=== PATIENT | female | born 1980 | race Caucasian/White ===

== ENCOUNTER → 2017-05-30 | Outpatient (CLI) | payer OTHER ==
[~2017-05-30] MED LIST: Bactrim Ds Tab1 EACH PO; CEPH500 PO; CIPR500 PO; CYCL10 PO; Cleocin HCl300 MG PO; DIPHTC; ERYT333ERA PO; HYDACE5 PO; HYDACE5325 PO; Keflex500 MG PO; METH10 PO; METR500 PO; MUPI2TO TOP; NAPR500 PO; Norco 5-325 Ta1 EACH PO; PRED20 PO; PYRI60 PO; Percocet 5-3251 EACH PO; RXHYDACE PO; SULTRIDS PO; TRAM50 PO; Vistaril25 MG PO
== END ==
LOC: LAB SHORT 08:45
DX: N39.0 Urinary tract infection, site not specified (principal)
CPT/HCPCS: 87077; 87086; 87186

== ENCOUNTER 2017-06-13 15:08 | Emergency (ER) | payer OTHER ==
[~2017-06-13] VITALS: Ht 170.2 cm; Wt 90.7 kg
[~2017-06-13 15:08] MED LIST changes: -Keflex500 MG PO; -METH10 PO; -PYRI60 PO
[2017-06-13] MEDS ORDERED: METH10 PO (16:41)
[2017-06-13] MEDS ORDERED: PYRI60 PO (16:47)
[2018-02-13] MEDS ORDERED: Keflex500 MG PO (21:37)
[2018-02-13] MEDS ORDERED: Bactrim Ds Tab1 EACH PO (21:37)
== END 2017-06-13 16:50 | disposition home or self-care (01) ==
LOC: ER 15:08
DX: S63.602A Unspecified sprain of left thumb, initial encounter (principal); Z98.51 Tubal ligation status; F17.210 Nicotine dependence, cigarettes, uncomplicated; Z88.0 Allergy status to penicillin; Z79.899 Other long term (current) drug therapy; W22.8XXA Striking against or struck by other objects, initial encounter
CPT/HCPCS: 73140; 99283

== ENCOUNTER 2018-05-14 19:37 | Emergency (ER) | payer OTHER ==
[~2018-05-14] VITALS: Ht 170.2 cm; Wt 90.7 kg
[~2018-05-14 19:37] MED LIST changes: +Keflex500 MG PO; +METH10 PO; +PYRI60 PO
[2018-05-14 20:40] LABS: BASOPHILS ABSOLUTE AUTO 0.05 K/mm3 (0.00-0.23); BASOPHILS PERCENT AUTO 1 % (0-2); EOSINOPHILS ABSOLUTE AUTO 0.24 K/mm3 (0.00-0.68); EOSINOPHILS PERCENT AUTO 3 % (0-6); Hematocrit 38.3 % (33.0-51.0); Hemoglobin 12.4 g/dL (11.5-16.0); IMMATURE GRAN ABSOLUTE AUTO 0.05 K/mm3 (0.00-0.10); IMMATURE GRAN PERCENT AUTO 1 % (0-1); LYMPHOCYTES ABSOLUTE AUTO 2.72 K/mm3 (0.84-5.20); LYMPHOCYTES PERCENT AUTO 31 % (21-46); MONOCYTES ABSOLUTE AUTO 0.67 K/mm3 (0.16-1.47); MONOCYTES PERCENT AUTO 8 % (4-13); Mean Corpuscular HGB 31.2 pg (26.0-34.0); Mean Corpuscular HGB Conc 32.4 g/dL (31.5-36.5); Mean Corpuscular Volume 96 fL (80-100); Mean Platelet Volume 9.6 fL (9.1-12.4); NEUTROPHILS ABSOLUTE AUTO 5.14 K/mm3 (1.96-9.15); NEUTROPHILS PERCENT AUTO 58 % (41-73); Platelet Count 460 K/mm3 (150-400); RDW Coefficient Variation 12.4 % (11.7-14.2); RDW Standard Deviation 44.2 fL (35.1-46.3); Red Blood Cell Count 3.98 M/mm3 (3.80-5.20); White Blood Cell Count 8.87 K/mm3 (4.00-11.30)
[2018-05-14 21:07] LABS: Alanine Aminotransfer (ALT/SGP 43 U/L (12-78); Albumin, Blood 3.1 g/dL (3.4-5.0); Albumin/Globulin Ratio 0.6 (0.8-1.8); Alk Phos 104 U/L (50-136); Anion Gap 7 mmol/L (6-16); Aspartate Aminotrans (AST/SGOT 38 U/L (12-37); Bilirubin, Total 0.2 mg/dL (0.1-1.0); Blood Urea Nitrogen 13 mg/dL (8-24); Bun/Creatinine Ratio 23.1 (12.0-20.0); CO2, Blood 23 mmol/L (21-32); Calcium, Blood 8.5 mg/dL (8.5-10.1); Chloride, Blood 105 mmol/L (98-108); Creatinine, Blood 0.56 mg/dL (0.40-1.00); Globulin, Blood 5.4 g/dL (2.2-4.0); Glomerular Filtration Rate >60 (60-); Glucose, Blood 90 mg/dL (70-99); Potassium, Blood 3.9 mmol/L (3.5-5.5); Sodium, Blood 135 mmol/L (136-145); Total Protein, Blood 8.5 g/dL (6.4-8.2)
[2018-05-14] MEDS ORDERED: CEPH500 PO (23:30)
[2018-05-14] MEDS ORDERED: Bactrim Ds Tab1 EACH PO (23:30)
== END 2018-05-15 01:02 | disposition home or self-care (01) ==
LOC: ER 19:37
PROVIDERS: Physician Assistant
DX: L02.416 Cutaneous abscess of left lower limb (principal); Z88.0 Allergy status to penicillin; F17.210 Nicotine dependence, cigarettes, uncomplicated
CPT/HCPCS: 36415; 73701; 80053; 83605; 85025; 87040; 93005; 93010; 96365; 96366; 99284-25; J3370; J7050; Q9967

== ENCOUNTER → 2018-08-03 | Outpatient (CLI) | payer OTHER | END | disposition home or self-care (01) | LOC: LAB 18:27 → LAB SHORT 18:27 | DX: L02.416 Cutaneous abscess of left lower limb (principal) | CPT/HCPCS: 87070; 87075; 87077; 87147; 87186; 87205 ==

== ENCOUNTER 2018-09-16 19:43 | Emergency (ER) | payer OTHER ==
[~2018-09-16] VITALS: Ht 170.2 cm; Wt 90.7 kg
[2018-09-16] MEDS ORDERED: CYCL10 PO (21:05)
[2018-09-16] MEDS ORDERED: Naprosyn500 MG PO (21:05)
== END 2018-09-16 21:30 | disposition home or self-care (01) ==
LOC: ER 19:43
DX: S46.211A Strain of muscle, fascia and tendon of other parts of biceps, right arm, initial encounter (principal); F11.10 Opioid abuse, uncomplicated; F17.210 Nicotine dependence, cigarettes, uncomplicated; Z88.0 Allergy status to penicillin; X58.XXXA Exposure to other specified factors, initial encounter
CPT/HCPCS: 73030; 99283-25

== ENCOUNTER 2018-10-14 23:26 | Emergency (ER) | payer OTHER ==
[~2018-10-14] VITALS: Ht 170.2 cm; Wt 90.7 kg
[~2018-10-14 23:26] MED LIST changes: +Naprosyn500 MG PO
== END 2018-10-15 03:22 | disposition left against medical advice (07) ==
LOC: ER 23:26
DX: Z53.21 Procedure and treatment not carried out due to patient leaving prior to being seen by health care provider (principal)

== ENCOUNTER 2018-10-15 14:36 | Inpatient (IN) | payer OTHER ==
[~2018-10-15] VITALS: Ht 170.2 cm; Wt 88.9 kg
[2018-10-15 19:13] LABS: Source, Urine Clean Catch
[2018-10-15 19:20] LABS: Bilirubin, Urine Neg (Neg); Blood, Urine Neg (Neg); Glucose Qualitative, Urine Neg (Neg); Ketones, Urine 1+ (Neg); Leukocyte Esterase, Urine 1+ (Neg); Nitrite, Urine Neg (Neg); Protein, Urine 2+ (Neg); Specific Gravity, Urine 1.025 (1.003-1.022); Urobilinogen, Urine 1+ (Normal)
[2018-10-15 19:37] LABS: Appearance, Urine Hazy (Clear); Color, Urine Yellow (P-Yellow)
[2018-10-15 19:41] LABS: White Blood Cells, Urine 25-50 /hpf (0-5)
[2018-10-15 19:42] LABS: Amorphous Light (0-Heavy); Bacteria Many /hpf; Squamous Epithelial Cells Many /hpf (Few)
[2018-10-15 19:43] LABS: Mucus Mod (0-Heavy)
[2018-10-15 20:16] LABS: BASOPHILS ABSOLUTE AUTO 0.05 K/mm3 (0.00-0.23); BASOPHILS PERCENT AUTO 1 % (0-2); EOSINOPHILS PERCENT AUTO 3 % (0-6); Hematocrit 37.8 % (33.0-51.0); Hemoglobin 12.3 g/dL (11.5-16.0); IMMATURE GRAN ABSOLUTE AUTO 0.05 K/mm3 (0.00-0.10); IMMATURE GRAN PERCENT AUTO 1 % (0-1); LYMPHOCYTES ABSOLUTE AUTO 2.89 K/mm3 (0.84-5.20); LYMPHOCYTES PERCENT AUTO 27 % (21-46); MONOCYTES ABSOLUTE AUTO 0.78 K/mm3 (0.16-1.47); MONOCYTES PERCENT AUTO 7 % (4-13); Mean Corpuscular HGB 29.6 pg (26.0-34.0); Mean Corpuscular HGB Conc 32.5 g/dL (31.5-36.5); Mean Corpuscular Volume 91 fL (80-100); Mean Platelet Volume 9.9 fL (9.1-12.4); NEUTROPHILS ABSOLUTE AUTO 6.65 K/mm3 (1.96-9.15); NEUTROPHILS PERCENT AUTO 62 % (41-73); Platelet Count 502 K/mm3 (150-400); RDW Coefficient Variation 13.2 % (11.7-14.2); RDW Standard Deviation 44.1 fL (35.1-46.3); Red Blood Cell Count 4.15 M/mm3 (3.80-5.20); White Blood Cell Count 10.72 K/mm3 (4.00-11.30)
[2018-10-15 20:26] LABS: Anion Gap 8 mmol/L (6-16); Blood Urea Nitrogen 11 mg/dL (8-24); Bun/Creatinine Ratio 17.1 (12.0-20.0); CO2, Blood 29 mmol/L (21-32); Calcium, Blood 9.5 mg/dL (8.5-10.1); Chloride, Blood 100 mmol/L (98-108); Creatinine, Blood 0.65 mg/dL (0.40-1.00); Glomerular Filtration Rate >60 (60-); Glucose, Blood 87 mg/dL (70-99); Potassium, Blood 3.2 mmol/L (3.5-5.5); Sodium, Blood 137 mmol/L (136-145)
[2018-10-16 05:08] LABS: Hemoglobin 11.1 g/dL (11.5-16.0); Mean Corpuscular HGB 29.5 pg (26.0-34.0); Mean Corpuscular HGB Conc 32.6 g/dL (31.5-36.5); Mean Corpuscular Volume 90 fL (80-100); Mean Platelet Volume 9.7 fL (9.1-12.4); Platelet Count 472 K/mm3 (150-400); RDW Coefficient Variation 13.1 % (11.7-14.2); RDW Standard Deviation 43.7 fL (35.1-46.3); Red Blood Cell Count 3.76 M/mm3 (3.80-5.20); White Blood Cell Count 9.97 K/mm3 (4.00-11.30)
[2018-10-16 05:32] LABS: Alanine Aminotransfer (ALT/SGP 28 U/L (12-78); Albumin, Blood 2.5 g/dL (3.4-5.0); Albumin/Globulin Ratio 0.5 (0.8-1.8); Alk Phos 105 U/L (50-136); Anion Gap 5 mmol/L (6-16); Aspartate Aminotrans (AST/SGOT 21 U/L (12-37); Bilirubin, Total 0.6 mg/dL (0.1-1.0); Blood Urea Nitrogen 10 mg/dL (8-24); Bun/Creatinine Ratio 17.9 (12.0-20.0); CO2, Blood 29 mmol/L (21-32); Calcium, Blood 8.5 mg/dL (8.5-10.1); Chloride, Blood 107 mmol/L (98-108); Creatinine, Blood 0.56 mg/dL (0.40-1.00); Globulin, Blood 4.7 g/dL (2.2-4.0); Glomerular Filtration Rate >60 (60-); Glucose, Blood 96 mg/dL (70-99); Potassium, Blood 4.1 mmol/L (3.5-5.5); Sodium, Blood 141 mmol/L (136-145); Total Protein, Blood 7.2 g/dL (6.4-8.2)
--- NOTE | 2018-10-16 05:47 | NUR ---
SHIFT SUMMARY PT NEW ADMIT TO FLOOR. AOX4. VSS. DENIES N/V/D OR DYSPNEA. REPORTS 10/10 BURNING PAIN IN L HIP & RLE WHERE ABCESS ARE LOCATED. L HIP HAS BROWNISH RED DRAINAGE W/REDNESS & SWELLING ON SURROUNDING SKIN, SOME BLACK SKIN OVER WOUND, SEE PICS. RLE ON BAUTISTA HAS SWELLING & REDNESS W/RAISED BUMP, NO OPEN AREA OR DRAINAGE NOTED. ORTHO CONSULT CALLED IN TO [facility] PER ORDERS. MEDICATED 1X W/TYLENOL & 1X W/FENTANYL PER ORDERS, PT REPORTS @HOME SHE WOULD USE HEROIN & IBPROPHEN TO HELP W/PAIN. POWERGLIDE PLACED IN BERNICE BY LOUIS Hager RN. NPO PER ORDERS. INDEPENDENT W/TRANSFERS, STEADY ON FEET, CONTINENT OF URINE. CALL LIGHT IN REACH.
--- NOTE | 2018-10-16 11:13 | NUR ---
AM NOTE. ASSUMED CARE OF PT APROX 0700, PT IS A&Ox4 AND IND IN THE ROOM. PT IS CURRENT IV HEROIN USER AND HER PAIN IS NOT WELL CONTROLLED PER THE PT. SHE IS IN A 10/10 PAIN ALL OVER, PT STATES HER SKIN HURTS WELL THE ABCESSES ON HER LEFT HIP AND RIGHT BAUTISTA. PT WAS EDUCATED ON PAIN CONTROL AND EDUCATED ABOUT MANAGING PAIN CONTROL EXPETCATIONS THAT WE WILL NOT BE ABLE TO GET RID OF ALL HER PAIN. PT STATED HER UNDERSTANDING. PT'S HRR, IN THE 80'S, PT'S BP 122/85. THERE IS NONPITTING EDEMA NOTED TO THE PT'S LEFT HIP AROUND THE WOUND AND TO HER RIGHT LOWER LEG AROUND THE NEWLY OPENED ABCESS. L/S CLEAR BUT DIM T/O. BT PRESENT AND HYPERACTIVE, ABD IS SOFT AND NONTENDER TO PALP. PT IS VERY ANXIOUS AND UPSET ABOUT POOR PAIN CONTROL AND NOT BEING ABLE TO SMOKE. PT WAS EDUCATED ON THE NO SMOKING POLICY OF THIS UNIT, PT STATED HER UNDERSTANDING AND BUT STILL WANTED TO GO OUTSIDE. DRESSING CHANGE WAS DONE AND PT LEFT FOR OUTSIDE. PT IS TO TRANSFER TO THE SURGICAL FLOOR WHEN SHE RETURNS FROM SMOKING.
--- NOTE | 2018-10-16 12:00 | NUR ---
PT TRANSFERRED FROM PCU, A&OX4, INDEPENDENT IN ROOM, REP PAIN 11/11 - WILL TX PER EMAR. CALLED SURGICAL CONSULT TO CONFIRM IT HAD BEEN RECEIVED - OFFICE REPORTED SURGEON AWARE.
--- NOTE | 2018-10-16 14:36 | NUR ---
AMA DISCHARGE PT STATES SHE IS "NOT GOING TO WAIT ANYMORE, I AM GOING TO MAKE MYSELF WELL BECAUSE I AM AN ADDICT AND I AM SICK AND NEED HEROIN" PT EDUCATED ON THE RISKS OF LEAVING AND BENNEFITS OF STAYING-PT STATES THAT "IT IS A RISK SHE IS WILLING TO TAKE". POWER GLIDE REMOVED. DR BARON AND NURSING FINISH REPAIRER NOTIFIED.
--- NOTE | 2018-10-16 17:41 | NUR ---
positive blood cultures at aprox 1730 lab called with gram + bacilli blood culture. Pt left AMA prior to lab results called. Message left for Dr Daniel to call [phone] for results.
== END 2018-10-16 14:45 | disposition left against medical advice (07) | DRG 602 ==
LOC: ER 14:36 → PCU 21:00 → SURS 10-16 11:41
PROVIDERS: Emergency Medicine; ADMIT Internal Medicine
DX: L02.416 Cutaneous abscess of left lower limb (principal); L89.213 Pressure ulcer of right hip, stage 3; L02.01 Cutaneous abscess of face; B19.20 Unspecified viral hepatitis C without hepatic coma; F17.210 Nicotine dependence, cigarettes, uncomplicated; L02.415 Cutaneous abscess of right lower limb; F11.10 Opioid abuse, uncomplicated
CPT/HCPCS: 36415; 72193; 80048; 80053; 81001; 81025; 83605; 85025; 85027; 87040; 87086; 96365-59; 96375; 99285-25; A9270; C1751; J1650; J2185; J3010; J3370; J3480; J7050; Q9967

== ENCOUNTER 2018-11-04 22:44 | Inpatient (IN) | payer OTHER ==
[~2018-11-04] VITALS: Ht 170.2 cm; Wt 88.2 kg
[2018-11-04 23:18] LABS: Source, Urine Clean Catch
[2018-11-04 23:21] LABS: Blood, Urine 2+ (Neg); Glucose Qualitative, Urine Neg (Neg); Ketones, Urine 1+ (Neg); Leukocyte Esterase, Urine 1+ (Neg); Nitrite, Urine Neg (Neg); Protein, Urine 2+ (Neg); Specific Gravity, Urine 1.025 (1.003-1.022); Urobilinogen, Urine 3+ (Normal)
[2018-11-04 23:23] LABS: Bilirubin, Urine 1+ (Neg)
[2018-11-04 23:28] LABS: Appearance, Urine Hazy (Clear); Bacteria Many /hpf; Color, Urine Amber (P-Yellow); Mucus Heavy (0-Heavy); Red Blood Cells, Urine 0-2 /hpf (0-2); Squamous Epithelial Cells Few /hpf (Few)
[2018-11-05 01:22] LABS: BASOPHILS ABSOLUTE AUTO 0.03 K/mm3 (0.00-0.23); BASOPHILS PERCENT AUTO 0 % (0-2); EOSINOPHILS PERCENT AUTO 2 % (0-6); Hematocrit 32.6 % (33.0-51.0); Hemoglobin 10.6 g/dL (11.5-16.0); IMMATURE GRAN ABSOLUTE AUTO 0.05 K/mm3 (0.00-0.10); IMMATURE GRAN PERCENT AUTO 0 % (0-1); LYMPHOCYTES ABSOLUTE AUTO 1.73 K/mm3 (0.84-5.20); LYMPHOCYTES PERCENT AUTO 15 % (21-46); MONOCYTES ABSOLUTE AUTO 0.89 K/mm3 (0.16-1.47); MONOCYTES PERCENT AUTO 8 % (4-13); Mean Corpuscular HGB 29.2 pg (26.0-34.0); Mean Corpuscular HGB Conc 32.5 g/dL (31.5-36.5); Mean Corpuscular Volume 90 fL (80-100); NEUTROPHILS ABSOLUTE AUTO 8.38 K/mm3 (1.96-9.15); NEUTROPHILS PERCENT AUTO 74 % (41-73); Platelet Count 320 K/mm3 (150-400); RDW Coefficient Variation 14.3 % (11.7-14.2); RDW Standard Deviation 46.7 fL (35.1-46.3); Red Blood Cell Count 3.63 M/mm3 (3.80-5.20); White Blood Cell Count 11.28 K/mm3 (4.00-11.30)
[2018-11-05 01:43] LABS: Alanine Aminotransfer (ALT/SGP 30 U/L (12-78); Albumin, Blood 2.4 g/dL (3.4-5.0); Albumin/Globulin Ratio 0.5 (0.8-1.8); Alk Phos 94 U/L (50-136); Anion Gap 6 mmol/L (6-16); Aspartate Aminotrans (AST/SGOT 29 U/L (12-37); Bilirubin, Total 0.3 mg/dL (0.1-1.0); Blood Urea Nitrogen 11 mg/dL (8-24); Bun/Creatinine Ratio 19.8 (12.0-20.0); CO2, Blood 29 mmol/L (21-32); Calcium, Blood 8.6 mg/dL (8.5-10.1); Chloride, Blood 98 mmol/L (98-108); Creatinine, Blood 0.56 mg/dL (0.40-1.00); Globulin, Blood 4.8 g/dL (2.2-4.0); Glomerular Filtration Rate >60 (60-); Glucose, Blood 105 mg/dL (70-99); Potassium, Blood 3.3 mmol/L (3.5-5.5); Sodium, Blood 133 mmol/L (136-145); Total Protein, Blood 7.2 g/dL (6.4-8.2)
[2018-11-05 06:28] LABS: BASOPHILS ABSOLUTE AUTO 0.03 K/mm3 (0.00-0.23); BASOPHILS PERCENT AUTO 0 % (0-2); EOSINOPHILS ABSOLUTE AUTO 0.25 K/mm3 (0.00-0.68); EOSINOPHILS PERCENT AUTO 2 % (0-6); Hematocrit 31.8 % (33.0-51.0); Hemoglobin 10.4 g/dL (11.5-16.0); IMMATURE GRAN ABSOLUTE AUTO 0.03 K/mm3 (0.00-0.10); IMMATURE GRAN PERCENT AUTO 0 % (0-1); LYMPHOCYTES ABSOLUTE AUTO 1.86 K/mm3 (0.84-5.20); LYMPHOCYTES PERCENT AUTO 17 % (21-46); MONOCYTES ABSOLUTE AUTO 0.92 K/mm3 (0.16-1.47); MONOCYTES PERCENT AUTO 8 % (4-13); Mean Corpuscular HGB 29.7 pg (26.0-34.0); Mean Corpuscular HGB Conc 32.7 g/dL (31.5-36.5); Mean Corpuscular Volume 91 fL (80-100); NEUTROPHILS ABSOLUTE AUTO 8.05 K/mm3 (1.96-9.15); NEUTROPHILS PERCENT AUTO 72 % (41-73); Platelet Count 332 K/mm3 (150-400); RDW Coefficient Variation 14.4 % (11.7-14.2); White Blood Cell Count 11.14 K/mm3 (4.00-11.30)
[2018-11-05 06:44] LABS: Anion Gap 4 mmol/L (6-16); Blood Urea Nitrogen 8 mg/dL (8-24); Bun/Creatinine Ratio 15.7 (12.0-20.0); CO2, Blood 29 mmol/L (21-32); Calcium, Blood 8.2 mg/dL (8.5-10.1); Chloride, Blood 101 mmol/L (98-108); Creatinine, Blood 0.51 mg/dL (0.40-1.00); Glomerular Filtration Rate >60 (60-); Glucose, Blood 90 mg/dL (70-99); Potassium, Blood 3.6 mmol/L (3.5-5.5); Sodium, Blood 134 mmol/L (136-145)
--- NOTE | 2018-11-05 19:04 | NUR ---
SHIFT SUMMARY- PT NEW ADMIT THIS AFTERNOON. PT REPORTS RLE ONLY PAINFUL UPON TOUCH. DENIES SOB. RESP E/U ON RA. DENIES N/V. PT REPORTS SHE LAST USED IV HEROIN YESTERDAY. NO S/S OF WITHDRAWAL THIS SHIFT. CELLULITIS ON RLE IS MARKED. INDEPENDENT IN THE ROOM. FAMILY AT BEDSIDE. NO OTHER SIGNIFICANT CHANGES THIS SHIFT.
--- NOTE | 2018-11-06 06:25 | NUR ---
SHIFT SUMMARY PT INDEPENDENT A/O. NO C/O PAIN JUST VERY SLEEPY LETHARGIC WHOLE SHIFT. RLE WOUND PHILLY. SHE SLEPT THROUGH NIGHT. CALL LIGHT IN REACH.
--- NOTE | 2018-11-06 09:00 | NUR ---
PTPLEASANT COOP A/O. DENIES PAIN. H/R REG, NO MURMER NOTED. NO TELE. LUNGS CLEAR, RESP EASY, UNLABORED. ON R.A BT X4 LAST BM THIS AM. FIRM. STATES WILL TAKE COLACE AND MIRALAX. VOIDS PER BATHROOM. INDEPENDANT. WALKS TO SMOKE ALSO. RT LEG RED, ULCER NOTED. PHILLY. NO OTHER CONCERNS AT THIS TIME. BED IN LOW POSITION, CALL LITE IN REAC, CALLS APPROP
[2018-11-06 14:46] LABS: Vancomycin, Trough 7.3 ug/mL (5.0-10.0)
--- NOTE | 2018-11-06 18:34 | NUR ---
PT PLEASANT TODAY. HAS BEEN OUT TO SMOKE SEVERAL TIMES TODAY. INDEPENDANT WALKING. BEEN RESPECTFUL WITH BEING HERE WHEN REQUESTED. NO OTHER CONCERNS AT THIS TIME. BED IN LOW POSITION, ACLL LITE IN REACH, CALLS APPROP
--- NOTE | 2018-11-07 06:07 | NUR ---
SHIFT SUMMARY PT A/O INDEPENDENT WENT OUTSIDE X2 C FRIEND. R LEG COLOR LOOKS LESS RED, MORE PINK COLOR. PT THINKS IT IS GETTING BETTER, NO C/O PAIN. SHE WAS ABLE TO SLEEP T/O NIGHT.
[2018-11-07] MEDS ORDERED: Florastor250 MG PO (14:57)
[2018-11-07] MEDS ORDERED: CLIN300 PO (15:03)
--- NOTE | 2018-11-07 15:32 | NUR ---
PT DISCHARGED THE PT VERBALIZED UNDERSTANDING OF THE DC INSTRUCTIONS, THE PTS PRESCRIPTIONS WERE FAXED TO [facility], THE PT DECLINED WHEELCHAIR AND AMBULATED OUT ACCOMPANIED BY A FREIND STEADY ON HER FEET APPEARED TO BE BREATHING EASILY ON RA, A WOUND CARE CONSULTATION ORDER WAS SENT
== END 2018-11-07 15:27 | disposition home or self-care (01) | DRG 603 ==
LOC: ER 22:44 → ERHOLD 22:45 → MEDS 11-05 14:42 → ENPENDDIS 11-07 14:27 → MEDS 11-07 15:27
PROVIDERS: Emergency Medicine; ADMIT Hospitalist
DX: L03.115 Cellulitis of right lower limb (principal); E87.1 Hypo-osmolality and hyponatremia; F11.10 Opioid abuse, uncomplicated; B18.2 Chronic viral hepatitis C; E87.6 Hypokalemia; F17.210 Nicotine dependence, cigarettes, uncomplicated
CPT/HCPCS: 71045; 73701; 80048; 80053; 80202; 81001; 83605; 85025; 87040; 87086; 93971; 96365-59; 96366; 96367-59; 96372; 96372-59; 96375-59; 96376; 99285-25; A9270; G0378; J0696; J1650; J3370; J7030; J7050; Q9967

== ENCOUNTER 2019-04-21 18:51 | Emergency (ER) | payer OTHER ==
[~2019-04-21] VITALS: Ht 170.2 cm; Wt 90.7 kg
[~2019-04-21 18:51] MED LIST changes: +CLIN300 PO; +Florastor250 MG PO
[2019-04-21 20:19] LABS: BASOPHILS ABSOLUTE AUTO 0.05 K/mm3 (0.00-0.23); BASOPHILS PERCENT AUTO 1 % (0-2); EOSINOPHILS PERCENT AUTO 4 % (0-6); Hematocrit 38.8 % (33.0-51.0); Hemoglobin 12.6 g/dL (11.5-16.0); IMMATURE GRAN ABSOLUTE AUTO 0.02 K/mm3 (0.00-0.10); IMMATURE GRAN PERCENT AUTO 0 % (0-1); LYMPHOCYTES PERCENT AUTO 32 % (21-46); MONOCYTES ABSOLUTE AUTO 0.65 K/mm3 (0.16-1.47); MONOCYTES PERCENT AUTO 9 % (4-13); Mean Corpuscular HGB 29.2 pg (26.0-34.0); Mean Corpuscular HGB Conc 32.5 g/dL (31.5-36.5); Mean Corpuscular Volume 90 fL (80-100); Mean Platelet Volume 9.8 fL (9.1-12.4); NEUTROPHILS ABSOLUTE AUTO 4.03 K/mm3 (1.96-9.15); NEUTROPHILS PERCENT AUTO 54 % (41-73); Platelet Count 363 K/mm3 (150-400); RDW Coefficient Variation 14.2 % (11.7-14.2); RDW Standard Deviation 47.2 fL (35.1-46.3); Red Blood Cell Count 4.32 M/mm3 (3.80-5.20); White Blood Cell Count 7.45 K/mm3 (4.00-11.30)
[2019-04-21 20:37] LABS: Alanine Aminotransfer (ALT/SGP 39 U/L (12-78); Albumin, Blood 3.1 g/dL (3.4-5.0); Albumin/Globulin Ratio 0.7 (0.8-1.8); Alk Phos 107 U/L (50-136); Anion Gap 4 mmol/L (6-16); Aspartate Aminotrans (AST/SGOT 34 U/L (12-37); Bilirubin, Total 0.5 mg/dL (0.1-1.0); Blood Urea Nitrogen 12 mg/dL (8-24); Bun/Creatinine Ratio 28.5 (12.0-20.0); CO2, Blood 28 mmol/L (21-32); Calcium, Blood 9.2 mg/dL (8.5-10.1); Chloride, Blood 104 mmol/L (98-108); Creatinine, Blood 0.42 mg/dL (0.40-1.00); Globulin, Blood 4.7 g/dL (2.2-4.0); Glomerular Filtration Rate >60 (60-); Glucose, Blood 112 mg/dL (70-99); Potassium, Blood 3.8 mmol/L (3.5-5.5); Sodium, Blood 136 mmol/L (136-145); Total Protein, Blood 7.8 g/dL (6.4-8.2)
[2019-04-21 23:26] LABS: Body Fluid Crystals NEG (NEGATIVE)
[2019-04-22] MEDS ORDERED: IBU600 MG PO (00:38)
[2019-04-22] MEDS ORDERED: LIDO700A20 TOP (00:38)
== END 2019-04-22 00:55 | disposition home or self-care (01) ==
LOC: ER 18:51
PROVIDERS: Emergency Medicine
DX: M25.512 Pain in left shoulder (principal); F19.10 Other psychoactive substance abuse, uncomplicated; Z86.19 Personal history of other infectious and parasitic diseases; Z88.0 Allergy status to penicillin; F17.210 Nicotine dependence, cigarettes, uncomplicated
CPT/HCPCS: 20610; 36415; 73201; 80053; 84145; 85025; 85651; 86140; 87070; 87075; 87205; 89060; 93005; 93010; 96374; 99284-25; A9270; J1885; Q9967

== ENCOUNTER 2019-05-17 11:26 | Emergency (ER) | payer OTHER ==
[~2019-05-17] VITALS: Ht 170.2 cm; Wt 90.7 kg
[~2019-05-17 11:26] MED LIST changes: +IBU600 MG PO; +LIDO700A20 TOP
[2019-05-17] MEDS ORDERED: CEPH500 PO (12:59)
[2019-05-17] MEDS ORDERED: Bactrim Ds Tab1 EACH PO (12:59)
== END 2019-05-17 13:04 | disposition home or self-care (01) ==
LOC: ER 11:26
DX: L02.416 Cutaneous abscess of left lower limb (principal); L03.116 Cellulitis of left lower limb; F17.210 Nicotine dependence, cigarettes, uncomplicated; Z88.0 Allergy status to penicillin; Z86.19 Personal history of other infectious and parasitic diseases
CPT/HCPCS: 10060; 87070; 87075; 87077; 87147; 87186; 87205; 99283-25; A9270-GY

== ENCOUNTER 2020-08-14 11:28 | Inpatient (IN) | payer OTHER ==
[~2020-08-14] VITALS: Ht 170.2 cm; Wt 105.5 kg
[2020-08-14 12:09] LABS: BASOPHILS ABSOLUTE AUTO 0.07 K/mm3 (0.00-0.23); BASOPHILS PERCENT AUTO 1 % (0-2); EOSINOPHILS ABSOLUTE AUTO 0.47 K/mm3 (0.00-0.68); EOSINOPHILS PERCENT AUTO 4 % (0-6); Hematocrit 31.8 % (33.0-51.0); Hemoglobin 10.4 g/dL (11.5-16.0); IMMATURE GRAN ABSOLUTE AUTO 0.05 K/mm3 (0.00-0.10); IMMATURE GRAN PERCENT AUTO 0 % (0-1); LYMPHOCYTES ABSOLUTE AUTO 2.79 K/mm3 (0.84-5.20); LYMPHOCYTES PERCENT AUTO 23 % (21-46); MONOCYTES ABSOLUTE AUTO 0.75 K/mm3 (0.16-1.47); MONOCYTES PERCENT AUTO 6 % (4-13); Mean Corpuscular HGB 28.4 pg (26.0-34.0); Mean Corpuscular HGB Conc 32.7 g/dL (31.5-36.5); Mean Corpuscular Volume 87 fL (80-100); Mean Platelet Volume 9.9 fL (9.1-12.4); NEUTROPHILS ABSOLUTE AUTO 7.93 K/mm3 (1.96-9.15); NEUTROPHILS PERCENT AUTO 66 % (41-73); Platelet Count 478 K/mm3 (150-400); RDW Coefficient Variation 14.1 % (11.7-14.2); RDW Standard Deviation 45.3 fL (35.1-46.3); Red Blood Cell Count 3.66 M/mm3 (3.80-5.20); White Blood Cell Count 12.06 K/mm3 (4.00-11.30)
[2020-08-14 12:27] LABS: Alanine Aminotransfer (ALT/SGP 34 U/L (12-78); Albumin, Blood 2.7 g/dL (3.4-5.0); Albumin/Globulin Ratio 0.5 (0.8-1.8); Alk Phos 149 U/L (50-136); Anion Gap 5 mmol/L (6-16); Aspartate Aminotrans (AST/SGOT 36 U/L (12-37); Bilirubin, Total 0.4 mg/dL (0.1-1.0); Blood Urea Nitrogen 18 mg/dL (8-24); Bun/Creatinine Ratio 36.4 (12.0-20.0); CO2, Blood 29 mmol/L (21-32); Calcium, Blood 8.8 mg/dL (8.5-10.1); Chloride, Blood 102 mmol/L (98-108); Globulin, Blood 5.6 g/dL (2.2-4.0); Glomerular Filtration Rate >60 (60-); Glucose, Blood 111 mg/dL (70-99); Potassium, Blood 4.1 mmol/L (3.5-5.5); Sodium, Blood 136 mmol/L (136-145); Total Protein, Blood 8.3 g/dL (6.4-8.2)
--- NOTE | 2020-08-14 17:26 | NUR ---
ARRIVES AROUND 1600. IV INFILTRATED AND D'C. GAEL RIGGINS ATTEMPTING TO GET IV W/ULTRASOUND. PATIENT HAS LARGE BUMPS TO ALL EXTREMITIES. PICS TAKEN OF BILATERAL UPPER ARMS WHERE PATIENT INJECTS EITHER HEROIN OR METH. SWELLING TO THOSE AREAS WITH SLIGHT BRUISING. RT LOWER LEG WITH REDNESS MARKED. NO OPEN DRANAGE TO THIS AREA, BUT WITH LUMPS UNDER THE SKIN. PICS OF OLD (ONE MONTH AGO) SITES (X2) TAKEN OF LEFT LATERAL UPPER THIGH. DRY, NO DRAINAGE.PIC OF RT LATERAL UPPER THIGH TAKEN. 4 WOUNDS WITH ALL DRAINING. CLENED WITH SKINTEGRITY AND 4 MEPILES APPLIED. REDNESS MARKED. PATIENT ALERT. ORIENTED. DENIES ANY WEAKNESS. STS HAS BEEN DOING DRUGS FOR 16 YEARS. AWARE NEEDS URINE SAMPLE. HAT PLACED IN BATHROOM. PER GAEL RIGGINS UNABLE TO IV AT THIS TIME. INDEPENDENT IN ROOM. PER SALES AND MARKETING ASSOCIATE SR AT 88. WCTM
--- NOTE | 2020-08-14 19:37 | NUR ---
AMA PT REQUESTED TO LEAVE AMA. RISKS OF LEAVING, BENEFITS OF STAYING EXPLAINED TO PT. SHE SIGNED AMA PAPERWORK, DRESSED HERSELF, GATHERED HER THINGS AND LEFT THE FLOOR. CHARGE AND FURNACE CHARGING MACHINE OPERATOR VAHE INFORMED.
== END 2020-08-14 19:28 | disposition left against medical advice (07) | DRG 872 ==
LOC: ER 11:28 → MEDS 14:14
PROVIDERS: Emergency Medicine; ADMIT Internal Medicine
DX: A41.9 Sepsis, unspecified organism (principal); L03.115 Cellulitis of right lower limb; F11.10 Opioid abuse, uncomplicated; F17.210 Nicotine dependence, cigarettes, uncomplicated; B18.2 Chronic viral hepatitis C; S71.101A Unspecified open wound, right thigh, initial encounter; Z53.29 Procedure and treatment not carried out because of patient's decision for other reasons; Z88.0 Allergy status to penicillin
CPT/HCPCS: 36415; 73701; 80053; 83605; 85025; 87070; 87075; 87077; 87147; 87186; 87205; 96365-59; 96375-59; 99284-25; J1170; J1650; J2405; J3370; J7030; Q9967

== ENCOUNTER 2022-06-01 18:14 | Inpatient (IN) | payer OTHER ==
[~2022-06-01] VITALS: Ht 170.2 cm; Wt 123.0 kg
[2022-06-01 19:28] LABS: Hematocrit 38.8 % (33.0-51.0); Hemoglobin 12.9 g/dL (11.5-16.0); Mean Corpuscular HGB 29.4 pg (26.0-34.0); Mean Corpuscular HGB Conc 33.2 g/dL (31.5-36.5); Mean Corpuscular Volume 88 fL (80-100); Mean Platelet Volume 9.6 fL (9.1-12.4); Platelet Count 400 K/mm3 (150-400); RDW Coefficient Variation 14.7 % (11.7-14.2); Red Blood Cell Count 4.39 M/mm3 (3.80-5.20); White Blood Cell Count 26.85 K/mm3 (4.00-11.30)
[2022-06-01 19:46] LABS: BAND PERCENT MAN 5 % (0-8); BASOPHILS PERCENT MAN 0 % (0-2); EOSINOPHILS PERCENT MAN 0 % (0-6); LYMPHOCYTES ABSOLUTE MAN 1.87 K/mm3 (0.84-5.20); LYMPHOCYTES PERCENT MAN 7 % (21-46); METAMYELOCYTE ABSOLUTE MAN 0.53 K/mm3 (0.00-0.00); METAMYELOCYTE PERCENT MAN 2 % (0-0); MONOCYTES ABSOLUTE MAN 0.26 K/mm3 (0.16-1.47); MONOCYTES PERCENT MAN 1 % (4-13); NEUTROPHILS ABSOLUTE MAN 24.16 K/mm3 (1.96-9.15); SEG NEUTROPHILS PERCENT MAN 85 % (41-73); TOTAL CELLS COUNTED 100
[2022-06-01 19:50] LABS: Albumin, Blood 2.8 g/dL (3.4-5.0); Albumin/Globulin Ratio 0.5 (0.8-1.8); Bilirubin, Total 0.8 mg/dL (0.1-1.0); Bun/Creatinine Ratio 24.5 (12.0-20.0); Calcium, Blood 9.3 mg/dL (8.5-10.1); Creatinine, Blood 1.1 mg/dL (0.40-1.00); Globulin, Blood 5.8 g/dL (2.2-4.0); Total Protein, Blood 8.6 g/dL (6.4-8.2)
[2022-06-01] MEDS ORDERED: METH40 PO (20:31)
[2022-06-02 04:50] LABS: BASOPHILS ABSOLUTE AUTO 0.06 K/mm3 (0.00-0.23); BASOPHILS PERCENT AUTO 0 % (0-2); EOSINOPHILS ABSOLUTE AUTO 0.02 K/mm3 (0.00-0.68); EOSINOPHILS PERCENT AUTO 0 % (0-6); Hematocrit 32.5 % (33.0-51.0); IMMATURE GRAN ABSOLUTE AUTO 0.34 K/mm3 (0.00-0.10); IMMATURE GRAN PERCENT AUTO 2 % (0-1); LYMPHOCYTES ABSOLUTE AUTO 1.38 K/mm3 (0.84-5.20); LYMPHOCYTES PERCENT AUTO 7 % (21-46); MONOCYTES ABSOLUTE AUTO 0.29 K/mm3 (0.16-1.47); MONOCYTES PERCENT AUTO 1 % (4-13); Mean Corpuscular HGB 29.7 pg (26.0-34.0); Mean Corpuscular HGB Conc 33.8 g/dL (31.5-36.5); Mean Corpuscular Volume 88 fL (80-100); Mean Platelet Volume 9.6 fL (9.1-12.4); NEUTROPHILS ABSOLUTE AUTO 19.19 K/mm3 (1.96-9.15); NEUTROPHILS PERCENT AUTO 90 % (41-73); Platelet Count 310 K/mm3 (150-400); RDW Coefficient Variation 14.8 % (11.7-14.2); RDW Standard Deviation 48.1 fL (35.1-46.3); White Blood Cell Count 21.28 K/mm3 (4.00-11.30)
[2022-06-02 05:09] LABS: Albumin/Globulin Ratio 0.4 (0.8-1.8); Bilirubin, Total 0.7 mg/dL (0.1-1.0); Bun/Creatinine Ratio 24.8 (12.0-20.0); Calcium, Blood 8.4 mg/dL (8.5-10.1); Creatinine, Blood 0.73 mg/dL (0.40-1.00); Potassium, Blood 3.3 mmol/L (3.5-5.5)
--- NOTE | 2022-06-02 06:26 | NUR ---
END OF SHIFT NOTE: ASSUMED CARE OF PT AT 0100. PT IS ALERT AND ORIENTED X 4, ABLE TO COMMUNICATE NEEDS. PT C/O CHRONIC LOWER BACK PAIN, LIDOCAINE PATCH APPLIED TO LOWER BACK WITH GOOD EFFECT. PT ON ROOM AIR WITH SPO2 ABOVE 90% NO RESP DISTRESS NOTED. PT IN SR TO ST WITH HR BETWEEN 100-115, BP STABLE. PT DENIES ANY NAUSE/VOMITING, BOWEL TONES ACTIVE IN ALL QUADRANTS. LLE CELLULITIS OUTLINED, PICTURES OBTAINED OF BLE WOUNDS. PT USING BSC WITH 1 PERSON ASSIST TO STAND AND PIVOT. PT ASSISTED WITH REPOSITIONS. WILL CONTINUE WITH PLAN OF CARE UNTIL REPORT IS GIVEN TO ONCOMING SHIFT.
--- NOTE | 2022-06-02 18:25 | NUR ---
SHIFT SUMMARY: ASSUMED CARE OF PT AT APPROX 1600, RECEIVED REPORT FROM VAISHNAVI MONTGOMERY. SINCE THEN, PT HAS BEEN SLEEPING, WOKE UP FOR DINNER THEN BACK TO SLEEP, RESP EVEN AND UNLABORED. ST CONTINUES ON MONITOR WITH RATE IN LOW 100s. NO ACUTE DISTRESS. IV FLUIDS CONTINUE TO INFUSE W/OUT DIFFICULTY. WILL CONTINUE TO MONITOR AND TREAT ACCORDINGLY UNTIL CHANGE OF SHIFT.
[2022-06-02 23:43] LABS: Vancomycin, Trough 12.7 ug/mL (5.0-10.0)
[2022-06-03 03:57] LABS: Hematocrit 34.3 % (33.0-51.0); Hemoglobin 11.1 g/dL (11.5-16.0); Mean Corpuscular HGB 29.3 pg (26.0-34.0); Mean Corpuscular HGB Conc 32.4 g/dL (31.5-36.5); Mean Corpuscular Volume 91 fL (80-100); Mean Platelet Volume 9.7 fL (9.1-12.4); Platelet Count 314 K/mm3 (150-400); RDW Coefficient Variation 15.5 % (11.7-14.2); Red Blood Cell Count 3.79 M/mm3 (3.80-5.20); White Blood Cell Count 18.53 K/mm3 (4.00-11.30)
[2022-06-03 04:16] LABS: Albumin, Blood 1.8 g/dL (3.4-5.0); Anion Gap 7 mmol/L (6-16); Blood Urea Nitrogen 8 mg/dL (8-24); CO2, Blood 22 mmol/L (21-32); Calcium, Blood 8.3 mg/dL (8.5-10.1); Chloride, Blood 104 mmol/L (98-108); Creatinine, Blood 0.62 mg/dL (0.40-1.00); Glomerular Filtration Rate 114 (60-); Glucose, Blood 113 mg/dL (70-99); Phosphorus, Blood 1.8 mg/dL (2.5-4.9); Potassium, Blood 3.3 mmol/L (3.5-5.5); Sodium, Blood 133 mmol/L (136-145)
--- NOTE | 2022-06-03 05:56 | NUR ---
SHIFT SUMMARY PT ORIENTED, BUT LETHARGIC. PT OPENS EYES TO VERBAL STIMULI, PT RESPONDS AND ANSWERS QUESTIONS APPROPRIATELY. VSS THROUGHOUT SHIFT. PT DENIES CP, PRESSURE OR SOB. PT REPORTS 7 - 8/10 PAIN IN LLE. LLE ELEVATED, PT REPOSITIONED PRN, AND MEDICATION PER EMAR TO HELP RELIEVE PAIN. LLE REMAINS UNCHANGED IN APPEARANCE. PT STATES "IT HURTS BAD AND FEELS LIKE IT IS GOING TO BLOW UP". WITH REST, ELEVATION AND REPOSITIONING PT REPORTS MILD RELIEF. THIS RN CALLED HOSPITALIST TO NOTIFY OF PAIN; NEW ORDERS FOR FENTANYL 25 - 50 MCG, Q4 PRN FOR PAIN ORDERED. PT RECIEVED MEDICATION X1; PT REPORTS MUCH RELIEF. LLE STILL WARM TO THE TOUCH. PT UP TO BSC X2 WITH MINIMAL ASSISTANCE. PT URINE IS DARK, ARLEN AND MODERATE ODOR NOTED. PT REPORTS THE ODOR IS "NEW" BUT COLOR IS FAIRLY NORMAL. NO OTHER CHANGES THROUGHOUT SHIFT. CALL LIGHT IN USE AND PT USING APPROPRIATELY FOR NEEDS. WILL UPDATE ONCOMING RN.
--- NOTE | 2022-06-03 16:57 | NUR ---
SHIFT SUMMARY PT REMAINS ALERT AND ORIENTED. VS STABLE. TELEMETRY DISCONTINUED THIS SHIFT, BUT PT WAS NSR PRIOR TO REMOVAL. BP STABLE. O2 SATS REMAIN ABOVE 90% ON RA. PT COMPLAINS OF TOLERABLE PAIN TO LLE. REDNESS HAS NOT CHANGED THIS SHIFT. LEG ELEVATED ON PILLOWS ALMOST ENTIRE SHIFT. PT ABLE TO STAND AND PIVOT TO BSC NEEDED TO VOID, BUT STATES IT IS TOO PAINFUL TO BEAR FULL WEIGHT. WILL CONTINUE TO MONITOR AND REPORT TO ONCOMING RN.
--- NOTE | 2022-06-03 20:37 | NUR ---
ASSUMPTION OF CARE THIS RN ASSUMED CARE OF PT 1899. REPORT RECEIVED FROM VAISHNAVI YOUSSEF. PT SLEEPING UPON ARRIVAL TO ROOM, BUT IS EASILY AWAKENED BY VERBAL STIMULI. PT A&O X4, RESPONDING APPROPRIATELY. VSS. LLE ELEVATED, PT REPORTS 2/10 PAIN. LLE SHOWING MINOR IMPROVEMENT FROM YESTERDAY. RLE ABSCESS ON THE BACK OF LEG HAS OPENED AND IS DRAINING W/SMALL AMOUNT OF BLOOD OOZING. CURRENTLY OPEN TO AIR, THIS RN WILL CLEAN SITE. PT DENIES ANY CP, PRESSURE, OR SOB. DENIES GENERAL PAIN, STATES IS "STARTING TO FEEL A LITTLE BETTER". PT DENIES ANY NEEDS OR CONCERNS AT THIS TIME. CALL LIGHT IN REACH AND BED IN LOWEST POSITION.
[2022-06-04 00:50] LABS: Vancomycin, Trough 21.9 ug/mL (5.0-10.0)
--- NOTE | 2022-06-04 06:03 | NUR ---
SHIFT SUMMARY PT REMAINS ORIENTED, PT SLEPT MOST OF SHIFT AND LETHARGIC/TIRED BUT AWAKENS TO SOUNDS EASILY. VSS THROUGHOUT SHIFT. PT AFEBRILE. PT DENIES CP OR PRESSURE, DENIES SOB OR TROUBLE BREATHING. PT UP TO BATHROOM INDEPENDENTLY TO VOID. PT HAD 1 BM THIS SHIFT; REPORTS NO CONCERNS AND STATES IS NORMAL. PT REPORTS BEING ABLE TO BEAR SOME EIGHT ON LLE. LLE SHOWS MINOR IMPROVEMENTS FROM YESTERDAY. RLE ABSCESS OPENED AT BEGINNING OF SHIFT; DRAINING AND OOZING SMALL AMOUNT OF BLOOD AND FLUID. THIS RN CLEANED AND KEPT OPEN TO AIR. NO ACUTE CHANGES DURING SHIFT. CALL LIGHT IN REACH AND PT USES WHEN NEEDED. WILL UPDATE ONCOMING RN
--- NOTE | 2022-06-04 15:27 | NUR ---
PT TRANSFERRED TO 336 AFTER REPORT GIVEN TO MEDICAL RN. LEFT WITH ALL BELONGINGS, NO HOME MEDICATIONS IN VAULT OR AT BEDSIDE.
--- NOTE | 2022-06-05 04:06 | NUR ---
SUMMARY: NO ACUTE EVENTS OVERNIGHT. PATIENT AOX4. VSS. IV ABX GIVEN. REDNESS TO LEGS WITHIN MARKED AREA. PATIENT AMBULATES INDEPENDENTLY IN HER ROOM. CALL LIGHT IN REACH. L LEG REMAINED ELEVATED WHILE PATIENT WAS IN BED.
[2022-06-05 09:12] LABS: Hemoglobin 11.7 g/dL (11.5-16.0); Mean Corpuscular HGB Conc 34.4 g/dL (31.5-36.5); Mean Corpuscular Volume 87 fL (80-100); Mean Platelet Volume 9.6 fL (9.1-12.4); Platelet Count 396 K/mm3 (150-400); RDW Standard Deviation 48.7 fL (35.1-46.3); White Blood Cell Count 10.55 K/mm3 (4.00-11.30)
[2022-06-05 09:26] LABS: Albumin, Blood 1.8 g/dL (3.4-5.0); Anion Gap 7 mmol/L (6-16); Blood Urea Nitrogen 11 mg/dL (8-24); CO2, Blood 29 mmol/L (21-32); Calcium, Blood 8.5 mg/dL (8.5-10.1); Chloride, Blood 105 mmol/L (98-108); Creatinine, Blood 0.65 mg/dL (0.40-1.00); Glomerular Filtration Rate 113 (60-); Glucose, Blood 93 mg/dL (70-99); Phosphorus, Blood 3.8 mg/dL (2.5-4.9); Potassium, Blood 3.3 mmol/L (3.5-5.5); Sodium, Blood 141 mmol/L (136-145)
[2022-06-05] MEDS ORDERED: SULTRIDS PO (11:11)
[2022-06-05] MEDS ORDERED: VISBIOME 112.51 EACH PO (11:11)
--- NOTE | 2022-06-05 12:59 | NUR ---
DISCHARGE NOTE PT DISCHARGED TO HOME WITH A MAN FRIEND. HER PG WAS REMOVED SUCCESSFULLY. MEDICATIONS FAXED TO THE PHARMACY OF HER CHOICE. DISCHARGE EDUCATION AND INFORMATION PROVIDED. PERSONAL BELONGINGS WERE RETURNED. PT TAKEN DOWN TO VEHICLE WITH THE UPPER TIER BY WHEELCHAIR.
== END 2022-06-05 12:00 | disposition home or self-care (01) | DRG 872 ==
LOC: ER 18:14 → PCU 06-02 00:39 → MEDS 06-04 15:15
PROVIDERS: Family Medicine; Internal Medicine; Physician Assistant; ADMIT Hospitalist
DX: A41.9 Sepsis, unspecified organism (principal); L03.116 Cellulitis of left lower limb; N17.9 Acute kidney failure, unspecified; E87.1 Hypo-osmolality and hyponatremia; E87.6 Hypokalemia; E83.39 Other disorders of phosphorus metabolism; F17.210 Nicotine dependence, cigarettes, uncomplicated; F15.10 Other stimulant abuse, uncomplicated; I10 Essential (primary) hypertension; F11.10 Opioid abuse, uncomplicated; B19.20 Unspecified viral hepatitis C without hepatic coma; Z86.14 Personal history of Methicillin resistant Staphylococcus aureus infection; Z87.2 Personal history of diseases of the skin and subcutaneous tissue; Z88.0 Allergy status to penicillin; Z79.2 Long term (current) use of antibiotics; Z79.899 Other long term (current) drug therapy; Z98.51 Tubal ligation status; Z96.659 Presence of unspecified artificial knee joint
CPT/HCPCS: 36415; 73700; 73701; 80053; 80069; 80202; 82565; 83605; 85025; 85027; 87040; 96365; 96366; 96367; 99285-25; A9270; C1751; J0696; J1650; J1885; J3010; J3370; J7030; J7050; J7060; Q9967

== ENCOUNTER 2022-07-28 18:00 | Emergency (ER) | payer OTHER ==
[~2022-07-28] VITALS: Ht 170.2 cm; Wt 136.1 kg
[~2022-07-28 18:00] MED LIST changes: +METH40 PO; +VISBIOME 112.51 EACH PO
[2022-07-28] MEDS ORDERED: NYSTOP15 GM TOP (19:22)
== END 2022-07-28 19:43 | disposition home or self-care (01) ==
LOC: ER 18:00
DX: L30.4 Erythema intertrigo (principal); F17.210 Nicotine dependence, cigarettes, uncomplicated; Z79.899 Other long term (current) drug therapy
CPT/HCPCS: A9270

== ENCOUNTER 2022-08-01 17:14 | Emergency (ER) | payer OTHER ==
[~2022-08-01] VITALS: Ht 167.6 cm; Wt 136.1 kg
[~2022-08-01 17:14] MED LIST changes: +NYSTOP15 GM TOP
[2022-08-01] MEDS ORDERED: CEPH500 PO (17:48)
[2022-08-01] MEDS ORDERED: Bactrim Ds Tab1 EACH PO (17:48)
== END 2022-08-01 18:00 | disposition home or self-care (01) ==
LOC: ER 17:14
DX: L03.317 Cellulitis of buttock (principal); L02.31 Cutaneous abscess of buttock; F19.10 Other psychoactive substance abuse, uncomplicated; F17.210 Nicotine dependence, cigarettes, uncomplicated; Z79.899 Other long term (current) drug therapy; Z88.0 Allergy status to penicillin
CPT/HCPCS: 99283

== ENCOUNTER 2023-03-12 15:29 | Inpatient (IN) | payer OTHER ==
[2023-03-12 18:13] LABS: BASOPHILS ABSOLUTE AUTO 0.04 K/mm3 (0.00-0.23); BASOPHILS PERCENT AUTO 1 % (0-2); EOSINOPHILS ABSOLUTE AUTO 0.24 K/mm3 (0.00-0.68); EOSINOPHILS PERCENT AUTO 3 % (0-6); Hematocrit 38.5 % (33.0-51.0); Hemoglobin 12.6 g/dL (11.5-16.0); IMMATURE GRAN ABSOLUTE AUTO 0.02 K/mm3 (0.00-0.10); IMMATURE GRAN PERCENT AUTO 0 % (0-1); LYMPHOCYTES ABSOLUTE AUTO 3.07 K/mm3 (0.84-5.20); LYMPHOCYTES PERCENT AUTO 37 % (21-46); MONOCYTES ABSOLUTE AUTO 0.41 K/mm3 (0.16-1.47); MONOCYTES PERCENT AUTO 5 % (4-13); Mean Corpuscular HGB 29.6 pg (26.0-34.0); Mean Corpuscular HGB Conc 32.7 g/dL (31.5-36.5); Mean Corpuscular Volume 90 fL (80-100); Mean Platelet Volume 9.9 fL (9.1-12.4); NEUTROPHILS ABSOLUTE AUTO 4.62 K/mm3 (1.96-9.15); NEUTROPHILS PERCENT AUTO 55 % (41-73); Platelet Count 436 K/mm3 (150-400); RDW Coefficient Variation 14.5 % (11.7-14.2); RDW Standard Deviation 47.9 fL (35.1-46.3); Red Blood Cell Count 4.26 M/mm3 (3.80-5.20)
[2023-03-12 18:32] LABS: Albumin, Blood 3.2 g/dL (3.4-5.0); Albumin/Globulin Ratio 0.6 (0.8-1.8); Bilirubin, Total 0.4 mg/dL (0.1-1.0); Bun/Creatinine Ratio 33.7 (12.0-20.0); Creatinine, Blood 0.48 mg/dL (0.40-1.00); Globulin, Blood 5.7 g/dL (2.2-4.0); Potassium, Blood 4.1 mmol/L (3.5-5.5); Total Protein, Blood 8.9 g/dL (6.4-8.2)
[2023-03-12 22:30] VITALS: BP 141/114
== END 2023-03-12 23:21 | disposition left against medical advice (07) | DRG 603 ==
LOC: ER 15:29 → MEDS 22:24
PROVIDERS: Physician Assistant; ADMIT Internal Medicine
DX: L03.115 Cellulitis of right lower limb (principal); B19.20 Unspecified viral hepatitis C without hepatic coma; F17.210 Nicotine dependence, cigarettes, uncomplicated; F15.90 Other stimulant use, unspecified, uncomplicated; G70.00 Myasthenia gravis without (acute) exacerbation; F11.90 Opioid use, unspecified, uncomplicated; Z86.14 Personal history of Methicillin resistant Staphylococcus aureus infection; Z98.890 Other specified postprocedural states; Z98.51 Tubal ligation status; Z71.51 Drug abuse counseling and surveillance of drug abuser
CPT/HCPCS: 73590; 73701; 80053; 83605; 84703; 85025; 87040; 87070; 87075; 87077; 87186; 87205; 93005; 93010; 96365-59; 96367; 96375-59; 99284-25; A9270; J1885; J2543; J3370; Q9967

== ENCOUNTER 2023-03-25 00:31 | Inpatient (IN) | payer OTHER ==
[~2023-03-25] VITALS: Ht 170.2 cm; Wt 119.5 kg
[2023-03-25 02:16] LABS: Albumin, Blood 3.2 g/dL (3.4-5.0); Albumin/Globulin Ratio 0.6 (0.8-1.8); Bilirubin, Total 0.3 mg/dL (0.1-1.0); Bun/Creatinine Ratio 27.6 (12.0-20.0); C-REACTIVE PROTEIN, EXT RANGE 3.5 mg/dL (0.000-0.300); Calcium, Blood 9.1 mg/dL (8.5-10.1); Creatinine, Blood 0.62 mg/dL (0.40-1.00); Globulin, Blood 5.5 g/dL (2.2-4.0); Total Protein, Blood 8.7 g/dL (6.4-8.2)
[2023-03-25 02:22] LABS: BASOPHILS ABSOLUTE AUTO 0.06 K/mm3 (0.00-0.23); BASOPHILS PERCENT AUTO 1 % (0-2); EOSINOPHILS ABSOLUTE AUTO 0.21 K/mm3 (0.00-0.68); EOSINOPHILS PERCENT AUTO 2 % (0-6); Hematocrit 37.5 % (33.0-51.0); Hemoglobin 12.1 g/dL (11.5-16.0); IMMATURE GRAN ABSOLUTE AUTO 0.02 K/mm3 (0.00-0.10); IMMATURE GRAN PERCENT AUTO 0 % (0-1); LYMPHOCYTES ABSOLUTE AUTO 3.41 K/mm3 (0.84-5.20); LYMPHOCYTES PERCENT AUTO 32 % (21-46); MONOCYTES ABSOLUTE AUTO 0.62 K/mm3 (0.16-1.47); MONOCYTES PERCENT AUTO 6 % (4-13); Mean Corpuscular HGB 29.7 pg (26.0-34.0); Mean Corpuscular HGB Conc 32.3 g/dL (31.5-36.5); Mean Corpuscular Volume 92 fL (80-100); Mean Platelet Volume 9.9 fL (9.1-12.4); NEUTROPHILS ABSOLUTE AUTO 6.27 K/mm3 (1.96-9.15); NEUTROPHILS PERCENT AUTO 59 % (41-73); Platelet Count 384 K/mm3 (150-400); RDW Coefficient Variation 14.5 % (11.7-14.2); RDW Standard Deviation 48.8 fL (35.1-46.3); Red Blood Cell Count 4.08 M/mm3 (3.80-5.20); White Blood Cell Count 10.59 K/mm3 (4.00-11.30)
[2023-03-25 08:16] VITALS: BP 161/99
--- NOTE | 2023-03-25 15:28 | NUR ---
PT WAS TRANFERED TO ROOM 328 AT 1515 REPORT WAS GIVEN TO RECIEVING RN. PT HAS BEEN RESTING IN BED MOST OF THE DAY. PT AOX4 AND HAS BEEN COOPERATIVE OF CARE. ABLE TO MAKE NEEDS KNOWN.
[2023-03-25 15:38] VITALS: BP 123/71
--- NOTE | 2023-03-25 15:44 | NUR ---
ASSUMTION OF CARE NOTE: PT TRANSFERRED TO ROOM 328. REPORT RECEIVED FROM RHIANNA RIGGINS. PT A/O X 4, IND IN ROOM, PLEASANT AND COOPERATIVE. PT ORIENTED TO NEW ROOM AND CALL LIGHT. PT DENIES PAIN, NAUSEA, SOB. PT HAS NO CONCERNS AT THIS TIME. PT REMINDED TO USE CALL LIGHT FOR NEEDS.
[2023-03-25 19:19] VITALS: BP 136/79
[2023-03-26 05:25] LABS: BASOPHILS ABSOLUTE AUTO 0.04 K/mm3 (0.00-0.23); BASOPHILS PERCENT AUTO 1 % (0-2); EOSINOPHILS ABSOLUTE AUTO 0.19 K/mm3 (0.00-0.68); EOSINOPHILS PERCENT AUTO 3 % (0-6); Hematocrit 34.9 % (33.0-51.0); Hemoglobin 11.1 g/dL (11.5-16.0); IMMATURE GRAN ABSOLUTE AUTO 0.01 K/mm3 (0.00-0.10); IMMATURE GRAN PERCENT AUTO 0 % (0-1); LYMPHOCYTES ABSOLUTE AUTO 2.56 K/mm3 (0.84-5.20); LYMPHOCYTES PERCENT AUTO 36 % (21-46); MONOCYTES ABSOLUTE AUTO 0.56 K/mm3 (0.16-1.47); MONOCYTES PERCENT AUTO 8 % (4-13); Mean Corpuscular HGB 29.8 pg (26.0-34.0); Mean Corpuscular HGB Conc 31.8 g/dL (31.5-36.5); Mean Corpuscular Volume 94 fL (80-100); NEUTROPHILS PERCENT AUTO 52 % (41-73); Platelet Count 343 K/mm3 (150-400); RDW Coefficient Variation 14.8 % (11.7-14.2); RDW Standard Deviation 50.9 fL (35.1-46.3); Red Blood Cell Count 3.73 M/mm3 (3.80-5.20); White Blood Cell Count 7.06 K/mm3 (4.00-11.30)
[2023-03-26 05:45] LABS: Albumin, Blood 2.6 g/dL (3.4-5.0); Albumin/Globulin Ratio 0.6 (0.8-1.8); Bilirubin, Total 0.4 mg/dL (0.1-1.0); Calcium, Blood 8.3 mg/dL (8.5-10.1); Creatinine, Blood 0.59 mg/dL (0.40-1.00); Globulin, Blood 4.7 g/dL (2.2-4.0); Total Protein, Blood 7.3 g/dL (6.4-8.2)
--- NOTE | 2023-03-26 06:32 | NUR ---
Shift Summary Dressing placed on RLE wound at the start of shift. Pt had a painful RLE and was given PRN Fentanyl 50 mcg x 2 which she stated controlled her pain well. Pt had some difficulty sleeping as she sleeps in a recliner at home and is not used to a bed. She is AOx4 and independent in the room. Rcving IV Zosyn and Vancomyacin as ordered.
[2023-03-26 07:40] VITALS: BP 132/73
[2023-03-26 12:36] LABS: Vancomycin, Trough 23.1 ug/mL (5.0-10.0)
--- NOTE | 2023-03-26 15:14 | NUR ---
Patients son arrived to visit, patient told RN that she was going to go to the parking lot to grab her stuff. Informed patient that if she leaves medical unit this RN will not be able to monitor her & keep her safe. Patient verbalized understanding. Also informed patient of [facility] smoking policies and smoking outside is not permitted, patient verbalized understanding of [facility] policies. Notified tele that patient was leaving unit.
--- NOTE | 2023-03-26 15:54 | NUR ---
WOUND CARE RLE WOUND CLEANSED WITH DERMAL WOUND CLEANSER. CALCIUM ALGINATE TO WOUND BED, COVERED WITH EXU-DRY, ROLLED GAUZE/NIGHAT. PT WILL NEED FOLLOW UP WITH WOUND CLINIC
[2023-03-26 16:00] VITALS: BP 138/82
--- NOTE | 2023-03-26 18:23 | NUR ---
DAYSHIFT SUMMARY Patient alert & oriented x4. Independent in room. IV vanco & zosyn administred. IV fentynal given for mod-severe pain in RLE d/t wound. supervisor quality control consulted & treated wound. Plan to f/u with outpatient wound care on discharge.
[2023-03-26 19:26] VITALS: BP 131/95
[2023-03-27 03:06] VITALS: BP 141/80
--- NOTE | 2023-03-27 04:58 | NUR ---
SHIFT SUMMARY SAMEERA WAS ALERT, FULLY ORIENTED, AND INDEPENDENT IN ROOM AT START OF SHIFT. PT HAD NO ACUTE EVENTS OR NOTABLE CHANGES IN CONDITION. PT STILL REQUIRING PRN FENTANYL FOR PAIN CONTROL. WOUND DRESSING CHANGED ON DAY SHIFT PER REPORT. PT RESTING IN BED AT A LOW POSITION WITH THE CALL LIGHT IN REACH.
[2023-03-27 07:41] VITALS: BP 133/88
[2023-03-27] MEDS ORDERED: VISBIOME 112.51 EACH PO (11:01)
[2023-03-27] MEDS ORDERED: SULFAMETHOXAZO1 EAC1 PO (11:02)
[2023-03-27] MEDS ORDERED: CEPH500 PO (11:02)
--- NOTE | 2023-03-27 13:31 | NUR ---
PT DISCHARGED THE PT VERBALIZED UNDERSTANDING OF THE DC INSTRUCTIONS. THE PTS PRESCRIPTIONS WERE FAXED TO [facility]. THE PT WAS GIVEN WOUND CARE SUPPLIES. THE PT WAS INSTRUCTED TO CALL TOMORROW TO SCHEDULE AN APPOINTMENT WITH WOUND CARE AND TO FOLLOW UP WITH HER PCP. PT WAS TRANSFERED VIA WHEELCHAIR ACCOMPANIED BY THE PROCUREMENT BUYER
== END 2023-03-27 11:25 | disposition home or self-care (01) | DRG 872 ==
LOC: ER 00:31 → MEDS 05:29
PROVIDERS: Emergency Medicine; ADMIT Internal Medicine
DX: A41.9 Sepsis, unspecified organism (principal); L03.115 Cellulitis of right lower limb; L97.919 Non-pressure chronic ulcer of unspecified part of right lower leg with unspecified severity; D64.9 Anemia, unspecified; G70.00 Myasthenia gravis without (acute) exacerbation; F17.210 Nicotine dependence, cigarettes, uncomplicated; E66.9 Obesity, unspecified; Z68.39 Body mass index [BMI] 39.0-39.9, adult; Z86.19 Personal history of other infectious and parasitic diseases; Z98.51 Tubal ligation status
CPT/HCPCS: 36415; 73701; 73720; 80053; 80202; 83605; 83880; 85025; 86140; 87040; 90471; 90714; 90715; 96365; 96366; 96367; 99285-25; A9579; C1751; J0690; J1650; J2543; J3010; J3370; J7030; J7050; Q9967

== ENCOUNTER 2023-05-07 03:17 | Day surgery (SDC) | payer OTHER ==
[~2023-05-07 03:17] MED LIST changes: +SULFAMETHOXAZO1 EAC1 PO
== END 2023-05-07 23:06 | disposition home or self-care (01) ==
LOC: WOUND 03:17
DX: L97.812 Non-pressure chronic ulcer of other part of right lower leg with fat layer exposed (principal); S81.801D Unspecified open wound, right lower leg, subsequent encounter; X58.XXXD Exposure to other specified factors, subsequent encounter; I87.2 Venous insufficiency (chronic) (peripheral); F17.210 Nicotine dependence, cigarettes, uncomplicated
CPT/HCPCS: 99406; A9270; G0463

== ENCOUNTER 2023-05-09 03:10 | Day surgery (SDC) | payer OTHER | END 2023-05-09 23:13 | disposition home or self-care (01) | LOC: WOUND 03:10 | DX: S81.801D Unspecified open wound, right lower leg, subsequent encounter (principal); I87.2 Venous insufficiency (chronic) (peripheral) ==

== ENCOUNTER 2023-05-16 02:48 | Day surgery (SDC) | payer OTHER | END 2023-05-16 22:53 | disposition home or self-care (01) | LOC: WOUND 02:48 | DX: S81.801D Unspecified open wound, right lower leg, subsequent encounter (principal); I87.2 Venous insufficiency (chronic) (peripheral) ==

== ENCOUNTER 2023-06-05 01:37 | Day surgery (SDC) | payer OTHER | END 2023-06-05 23:27 | disposition home or self-care (01) | LOC: WOUND 01:37 | DX: L97.812 Non-pressure chronic ulcer of other part of right lower leg with fat layer exposed (principal); I87.2 Venous insufficiency (chronic) (peripheral); S81.801D Unspecified open wound, right lower leg, subsequent encounter | CPT/HCPCS: 99406; A9270 ==

== ENCOUNTER 2023-06-13 00:36 | Day surgery (SDC) | payer OTHER ==
[2023-06-13] MEDS ORDERED: Lidocaine HCl 4% Cream 5 GM ONE (13:36)
== END 2023-06-13 23:17 | disposition home or self-care (01) ==
LOC: WOUND 00:36
DX: L97.812 Non-pressure chronic ulcer of other part of right lower leg with fat layer exposed (principal); I87.2 Venous insufficiency (chronic) (peripheral); S81.801D Unspecified open wound, right lower leg, subsequent encounter
CPT/HCPCS: A9270

== ENCOUNTER 2023-06-20 01:52 | Day surgery (SDC) | payer OTHER ==
[2023-06-20] MEDS ORDERED: Lidocaine HCl 4% Cream 5 GM ONE (13:45)
== END 2023-06-20 23:13 | disposition home or self-care (01) ==
LOC: WOUND 01:52
DX: L97.812 Non-pressure chronic ulcer of other part of right lower leg with fat layer exposed (principal); I87.2 Venous insufficiency (chronic) (peripheral); S81.801D Unspecified open wound, right lower leg, subsequent encounter
CPT/HCPCS: 87071; 87075; 87077; 87147; 87186; 87205; A9270

== ENCOUNTER 2023-06-27 05:19 | Day surgery (SDC) | payer OTHER | END 2023-06-27 23:05 | disposition home or self-care (01) | LOC: WOUND 05:19 | DX: S81.801D Unspecified open wound, right lower leg, subsequent encounter (principal); I87.2 Venous insufficiency (chronic) (peripheral) | CPT/HCPCS: G0463 ==

== ENCOUNTER 2023-09-10 23:59 | Emergency (ER) | payer OTHER ==
[~2023-09-10] VITALS: Ht 170.2 cm; Wt 126.8 kg
[2023-09-11 00:03] VITALS: BP 201/108
[2023-09-11 01:08] LABS: Albumin, Blood 3.3 g/dL (3.4-5.0); Albumin/Globulin Ratio 0.8 (0.8-1.8); Bilirubin, Total 0.2 mg/dL (0.1-1.0); Bun/Creatinine Ratio 35.1 (12.0-20.0); Calcium, Blood 8.8 mg/dL (8.5-10.1); Creatinine, Blood 0.48 mg/dL (0.40-1.00); Globulin, Blood 4.2 g/dL (2.2-4.0); Potassium, Blood 3.9 mmol/L (3.5-5.5); Total Protein, Blood 7.5 g/dL (6.4-8.2)
[2023-09-11 02:05] LABS: BASOPHILS ABSOLUTE AUTO 0.05 K/mm3 (0.00-0.23); BASOPHILS PERCENT AUTO 1 % (0-2); EOSINOPHILS ABSOLUTE AUTO 0.25 K/mm3 (0.00-0.68); EOSINOPHILS PERCENT AUTO 3 % (0-6); Hematocrit 35.3 % (33.0-51.0); Hemoglobin 11.7 g/dL (11.5-16.0); IMMATURE GRAN ABSOLUTE AUTO 0.04 K/mm3 (0.00-0.10); IMMATURE GRAN PERCENT AUTO 1 % (0-1); LYMPHOCYTES ABSOLUTE AUTO 3.34 K/mm3 (0.84-5.20); LYMPHOCYTES PERCENT AUTO 42 % (21-46); MONOCYTES ABSOLUTE AUTO 0.58 K/mm3 (0.16-1.47); MONOCYTES PERCENT AUTO 7 % (4-13); Mean Corpuscular HGB 30.2 pg (26.0-34.0); Mean Corpuscular HGB Conc 33.1 g/dL (31.5-36.5); Mean Corpuscular Volume 91 fL (80-100); NEUTROPHILS ABSOLUTE AUTO 3.69 K/mm3 (1.96-9.15); NEUTROPHILS PERCENT AUTO 47 % (41-73); NRBC ABSOLUTE 0.02 K/mm3 (0.00-0.02); NRBC Auto 0.3 /100 WBC (0.0-0.2); Platelet Count 305 K/mm3 (150-400); RDW Coefficient Variation 13.2 % (11.7-14.2); RDW Standard Deviation 43.5 fL (35.1-46.3); Red Blood Cell Count 3.87 M/mm3 (3.80-5.20); White Blood Cell Count 7.95 K/mm3 (4.00-11.30)
[2023-09-11] MEDS ORDERED: Trimethoprim/Sulfamethoxazole DS Tab PO ONE (03:05)
[2023-09-11] MEDS ORDERED: CefTRIAXone Sodium 2,000 MG in NS 100 ML IV ONE (03:05)
[2023-09-11] MEDS ORDERED: SULTRIDS PO (03:07)
[2023-09-11] MEDS ORDERED: CEPH500 PO (03:11)
[2023-09-11] MEDS ORDERED: Cephalexin Monohydrate 500 MG Cap PO ONE (04:10)
== END 2023-09-11 04:30 | disposition home or self-care (01) ==
LOC: ER 23:59
PROVIDERS: Student in an Organized Health Care Education/Training Program
DX: L97.819 Non-pressure chronic ulcer of other part of right lower leg with unspecified severity (principal); L97.219 Non-pressure chronic ulcer of right calf with unspecified severity; Z68.41 Body mass index [BMI] 40.0-44.9, adult; F17.210 Nicotine dependence, cigarettes, uncomplicated; L03.115 Cellulitis of right lower limb
CPT/HCPCS: 73590; 80053; 83605; 85025; A9270; J0696

== ENCOUNTER 2023-12-23 01:07 | Inpatient (IN) | payer OTHER ==
[2023-12-23] VITALS (18 sets, daily range): BP systolic 141–178; BP diastolic 85–112
[~2023-12-23] VITALS: Ht 170.2 cm; Wt 124.4 kg
[2023-12-23] MEDS ORDERED: METHADONE HCL PO (01:33)
[2023-12-23] MEDS ORDERED: IBUP200 PO (01:34)
[2023-12-23] MEDS ORDERED: NAPR500ERA PO (01:34)
[2023-12-23 02:35] LABS: BASOPHILS ABSOLUTE AUTO 0.05 K/mm3 (0.00-0.23); BASOPHILS PERCENT AUTO 1 % (0-2); EOSINOPHILS ABSOLUTE AUTO 0.26 K/mm3 (0.00-0.68); EOSINOPHILS PERCENT AUTO 3 % (0-6); Hematocrit 33.3 % (33.0-51.0); Hemoglobin 10.9 g/dL (11.5-16.0); IMMATURE GRAN ABSOLUTE AUTO 0.05 K/mm3 (0.00-0.10); IMMATURE GRAN PERCENT AUTO 1 % (0-1); LYMPHOCYTES ABSOLUTE AUTO 3.09 K/mm3 (0.84-5.20); LYMPHOCYTES PERCENT AUTO 33 % (21-46); MONOCYTES ABSOLUTE AUTO 0.55 K/mm3 (0.16-1.47); MONOCYTES PERCENT AUTO 6 % (4-13); Mean Corpuscular HGB Conc 32.7 g/dL (31.5-36.5); Mean Corpuscular Volume 92 fL (80-100); Mean Platelet Volume 9.7 fL (9.1-12.4); NEUTROPHILS ABSOLUTE AUTO 5.26 K/mm3 (1.96-9.15); NEUTROPHILS PERCENT AUTO 57 % (41-73); Platelet Count 515 K/mm3 (150-400); RDW Coefficient Variation 13.1 % (11.7-14.2); RDW Standard Deviation 43.8 fL (35.1-46.3); Red Blood Cell Count 3.63 M/mm3 (3.80-5.20); White Blood Cell Count 9.26 K/mm3 (4.00-11.30)
[2023-12-23 02:53] LABS: Albumin, Blood 2.9 g/dL (3.4-5.0); Albumin/Globulin Ratio 0.5 (0.8-1.8); Bilirubin, Total 0.4 mg/dL (0.1-1.0); Bun/Creatinine Ratio 24.4 (12.0-20.0); Calcium, Blood 9.1 mg/dL (8.5-10.1); Creatinine, Blood 0.66 mg/dL (0.40-1.00); Globulin, Blood 5.3 g/dL (2.2-4.0); Potassium, Blood 3.8 mmol/L (3.5-5.5); Total Protein, Blood 8.2 g/dL (6.4-8.2)
[2023-12-23] MEDS ORDERED: Cefepime HCl 2,000 MG in NS 100 ML IV ONE (05:10)
[2023-12-23] MEDS ORDERED: Ketorolac Tromethamine 30mg Vial IV ONE (05:15)
[2023-12-23] MEDS ORDERED: Vancomycin HCL 2,000 MG in NS 500 ML IV ONE (06:20)
[2023-12-23] MEDS ORDERED: Lactobacil 2-S.Thermo-Bifido 1 1 Cap PO SCH (09:00)
--- NOTE | 2023-12-23 09:00 | NUR ---
ADMIT PT ADMITTED TO ROOM. ORIENTED TO ROOM. PT EDUCATED ON NO SMOKING/IGITION POLICY. STATES SHE HAS NO FURTHER QUESTIONS. PT NPO. PHOTOS TAKEN ON WOUNDS AND PLACED IN CHART. DR. MAYFIELD NOTIFIED OF PT REQUEST FOR METHADONE AND POSSIBLE NEED FOR SURGICAL DEBREIDMENT.
[2023-12-23] MEDS ORDERED: Methadone HCL 10 MG TAB PO SCH (10:00)
--- NOTE | 2023-12-23 12:34 | NUR ---
DNR BAND PLACED TO WRIST. VERIFIED WITH MENDY HEDRICK RN
[2023-12-23] MEDS ORDERED: Lactated Ringer's 1,000 ML IV SCH (15:30)
--- NOTE | 2023-12-23 15:40 | NUR ---
PT TRANSPORTED TO DAY SURGERY
--- NOTE | 2023-12-23 15:56 | NUR ---
Pre-Op teaching done. Pt verbalizes understanding. Patient confirms NPO status and agrees with scheduled surgery. History, Chart, Medications and Allergies reviewed before start of procedure. ALL PT BELONGINGS LEFT IN PT ROOM ON MED FLOOR.
[2023-12-23] MEDS ORDERED: Ketamine HCl 100 MG / ML 5ML Vial ONE (16:17)
[2023-12-23] MEDS ORDERED: Midazolam HCl 1MG / ML 2ML Vial ONE (16:19)
[2023-12-23] MEDS ORDERED: FentaNYL Citrate 50 MCG/ML 2 ML Injection ONE ×3 (16:24→17:01)
[2023-12-23] MEDS ORDERED: propofoL 20 ML IV ONE (16:27)
[2023-12-23] MEDS ORDERED: HYDROmorphone HCl/Pf 1MG SYR ONE ×2 (17:01→17:22)
[2023-12-23] MEDS ORDERED: Ketorolac Tromethamine 30mg Vial ONE (17:05)
[2023-12-23] MEDS ORDERED: OxyCODONE 5 mg/Acetamin 325 mg TABLET PO PRN (17:30)
[2023-12-23] MEDS ORDERED: Vancomycin HCL 2,000 MG in NS 500 ML IV SCH (18:00)
--- NOTE | 2023-12-23 18:39 | NUR ---
SHIFT SUMMARY PT ADMITTED THIS AM. PHOTOS OF WOUND TAKEN & PLACED IN CHART. CONSULT FOR DR. BARKSDALE CALLED & HE TOOK PATIENT TO SURGERY FOR I&D. WOUND VAC IN PLACE NOW. NO OUTPUT NOTED. NO BLEEDING TO WOUND AREA NOTED AT THIS TIME. PT RESTING IN BED, SLEEPING AT THIS TIME. RESPIRATIONS EVEN & UNLABORED. VS REVIEWED. CONSULT FOR IR CALLED PER DR. YI ORDER. NO OTHER ACUTE CHANGES IN ASSESSMENT AT THIS TIME. VS REVIEWED. CALL LIGHT IN REACH.
[2023-12-23] MEDS ORDERED: Cefepime HCl 2,000 MG in NS 100 ML IV SCH (21:00)
[2023-12-23] MEDS ORDERED: NS 250 ML IV PRN (21:10)
[2023-12-23] MEDS ORDERED: Cefepime 2000 mg Vial ONE (22:07)
[2023-12-24 01:59] VITALS: BP 153/88
--- NOTE | 2023-12-24 04:37 | NUR ---
SHIFT SUMMARY POST OP NIGHT#1 AFTER I&D RLE. VSS. RIGHT LE WOUND VAC INTACT. DRAINING SCANT AAMOUNT OF SEROSANGUINEOUS FLUID. MEDICATED WITH PERCOCET ORDERED X3 DURING THIS SHIFT. PT RATES PAIN 11/11. PERCOCET EFFECTIVE PER PT REPORT. PT REMAINS IN CONTACT ISO FOR MRSA/WOUND.IV ABX INFUSED ORDERED. N0 ACUTE EVENTS DURING THIS SHIFT. BED AT THE LOWEST POSITION, CALL LIGHT WITHIN REACH. PT CALLS APPROPRIATELY.
[2023-12-24 05:12] LABS: BASOPHILS ABSOLUTE AUTO 0.05 K/mm3 (0.00-0.23); BASOPHILS PERCENT AUTO 1 % (0-2); EOSINOPHILS ABSOLUTE AUTO 0.25 K/mm3 (0.00-0.68); EOSINOPHILS PERCENT AUTO 3 % (0-6); Hematocrit 32.2 % (33.0-51.0); Hemoglobin 10.5 g/dL (11.5-16.0); IMMATURE GRAN ABSOLUTE AUTO 0.04 K/mm3 (0.00-0.10); IMMATURE GRAN PERCENT AUTO 1 % (0-1); LYMPHOCYTES ABSOLUTE AUTO 2.81 K/mm3 (0.84-5.20); LYMPHOCYTES PERCENT AUTO 32 % (21-46); MONOCYTES ABSOLUTE AUTO 0.57 K/mm3 (0.16-1.47); MONOCYTES PERCENT AUTO 6 % (4-13); Mean Corpuscular HGB 29.7 pg (26.0-34.0); Mean Corpuscular HGB Conc 32.6 g/dL (31.5-36.5); Mean Corpuscular Volume 91 fL (80-100); Mean Platelet Volume 9.5 fL (9.1-12.4); NEUTROPHILS ABSOLUTE AUTO 5.15 K/mm3 (1.96-9.15); NEUTROPHILS PERCENT AUTO 58 % (41-73); Platelet Count 447 K/mm3 (150-400); RDW Coefficient Variation 13.1 % (11.7-14.2); RDW Standard Deviation 43.7 fL (35.1-46.3); Red Blood Cell Count 3.53 M/mm3 (3.80-5.20); White Blood Cell Count 8.87 K/mm3 (4.00-11.30)
[2023-12-24 05:40] VITALS: BP 150/92
[2023-12-24 05:41] LABS: Bun/Creatinine Ratio 22.2 (12.0-20.0); Calcium, Blood 8.7 mg/dL (8.5-10.1); Creatinine, Blood 0.5 mg/dL (0.40-1.00); Potassium, Blood 3.5 mmol/L (3.5-5.5)
[2023-12-24 08:00] VITALS: BP 166/98
[2023-12-24] MEDS ORDERED: NS 100 ML IV ONE ×2 (08:36→19:53)
[2023-12-24] MEDS ORDERED: Cefepime 2000 mg Vial ONE ×2 (08:36→19:53)
[2023-12-24] MEDS ORDERED: Enoxaparin 40 MG/0.4 ML SYR SC SCH (09:00)
[2023-12-24] MEDS ORDERED: Losartan Potassium 25 MG Tab PO SCH (13:00)
[2023-12-24 14:09] VITALS: BP 145/91
--- NOTE | 2023-12-24 17:56 | NUR ---
SHIFT SUMMARY- PT ALERT AND ORIENTED, INDEPENDENT TO THE BATHROOM. PT MEDICATED FOR PAIN ORALLY, PAIN APPEARS TO BE WELL MANAGED. PER DR BARKSDALE THE WOUND VAC DRESSIONG SHOULD BE CHANGED EVERY OTHER DAY. THE PLAN IS FOR HER TO GO BACK INTO SURGERY ON FRIDAY FOR SKIN GRAFTING. PT WILL BE NPO FRIDAY AT MIDNIGHT. WHEN WOUND VAC IS CHANGED STATED OIL EMMULSION DRESSING SHOULD BE USED ON THE WOUND BED. PT IS CURRENTLY IN BED, CALL LIGHT IN REACH NO S&S OF DISTRESS NOTED.
[2023-12-24 20:55] VITALS: BP 148/84
[2023-12-25 02:21] VITALS: BP 135/69
--- NOTE | 2023-12-25 03:11 | NUR ---
SHIFT SUMMARY PT REPORTS PAIN RIGHT LE 11/11.MEDICATED ORDERED (SEE EMAR.) PT INDEPENDENT USING BEDSIDE COMMODE.IV ABX INFUSED ORDERED. WOUND VAC AND DRESSING INTACT. SCANT AMOUNT DRAINAGE, PINKISH COLOR. LE'S EDEMA +1-2 BILATERALLY. ELEVATED WITH PILLOWS. PT REPORTS PT/OT HELPFUL DURING DAYTIME. NO ACUTE EVENTS DURING THIS SHIFT. PT IS ABLE TO MAKE HER NEEDS KNOWN, COOPERATIVE WITH CARE, PLEASANT.
[2023-12-25 05:21] LABS: BASOPHILS ABSOLUTE AUTO 0.06 K/mm3 (0.00-0.23); BASOPHILS PERCENT AUTO 1 % (0-2); EOSINOPHILS ABSOLUTE AUTO 0.25 K/mm3 (0.00-0.68); EOSINOPHILS PERCENT AUTO 3 % (0-6); Hematocrit 30.9 % (33.0-51.0); Hemoglobin 10.2 g/dL (11.5-16.0); IMMATURE GRAN ABSOLUTE AUTO 0.05 K/mm3 (0.00-0.10); IMMATURE GRAN PERCENT AUTO 1 % (0-1); LYMPHOCYTES ABSOLUTE AUTO 2.35 K/mm3 (0.84-5.20); LYMPHOCYTES PERCENT AUTO 28 % (21-46); MONOCYTES ABSOLUTE AUTO 0.63 K/mm3 (0.16-1.47); MONOCYTES PERCENT AUTO 7 % (4-13); Mean Corpuscular HGB 29.7 pg (26.0-34.0); Mean Corpuscular Volume 90 fL (80-100); NEUTROPHILS PERCENT AUTO 61 % (41-73); RDW Coefficient Variation 13.1 % (11.7-14.2); RDW Standard Deviation 42.9 fL (35.1-46.3); Red Blood Cell Count 3.44 M/mm3 (3.80-5.20); White Blood Cell Count 8.54 K/mm3 (4.00-11.30)
[2023-12-25 05:29] LABS: Anion Gap 12 mmol/L (3-11); Blood Urea Nitrogen 16 mg/dL (8-24); CO2, Blood 25 mmol/L (21-32); Calcium, Blood 8.9 mg/dL (8.5-10.1); Chloride, Blood 104 mmol/L (98-108); Creatinine, Blood 0.62 mg/dL (0.40-1.00); Glomerular Filtration Rate 113 (60-); Glucose, Blood 105 mg/dL (70-99); Potassium, Blood 3.6 mmol/L (3.5-5.5); Sodium, Blood 137 mmol/L (136-145); Vancomycin, Trough 24.3 ug/mL (5.0-10.0)
--- NOTE | 2023-12-25 05:42 | NUR ---
CRITICAL LAB VALUE: MICHELLE [id number] FROM LAB INFORMED THIS ESTHETICIAN/SPA COORDINATOR OVER THE PHONE@ 2031.
[2023-12-25 05:54] LABS: Platelet Count 466 K/mm3 (150-400)
[2023-12-25 07:51] VITALS: BP 127/87
[2023-12-25] MEDS ORDERED: Cefepime 2000 mg Vial ONE ×2 (08:35→19:57)
[2023-12-25] MEDS ORDERED: NS 100 ML IV ONE ×2 (08:35→19:57)
[2023-12-25] MEDS ORDERED: Cefepime HCl 2,000 MG in NS 100 ML IV ONE (09:00)
[2023-12-25] MEDS ORDERED: FentaNYL Citrate 50 MCG/ML 2 ML Injection IV PRN (10:05)
[2023-12-25] MEDS ORDERED: Miconazole Nitrate 2% 85 GM PWD TOP SCH (10:15)
[2023-12-25] MEDS ORDERED: Vancomycin HCL 1,500 MG in NS 250 ML IV SCH (11:00)
[2023-12-25] MEDS ORDERED: OxyCODONE 5 mg/Acetamin 325 mg TABLET PO PRN (12:30)
[2023-12-25 16:03] VITALS: BP 125/77
--- NOTE | 2023-12-25 18:54 | NUR ---
SHIFT SUMMARY- PT ALERT AND ORIENTED X4. SHE HAD HER WOUND VAC CHANGED THIS EVENING. SHE WASD PREMEDICATED WITH IV FENTANYL, POST CHANGE SHE WAS PAINFULL BUT IT SEEMS TO BE BECOMING MORE TOLLERABLE. PT HAS BEEN INDEPENDENT TO THE BSC, BUT CALLS APPROPRIATELY. PT IS IN BED, CALL LIGHT IN REACH NO S&S OF DISTRESS NOTED.
[2023-12-25 20:11] VITALS: BP 136/75
[2023-12-26 04:24] VITALS: BP 126/79
--- NOTE | 2023-12-26 04:57 | NUR ---
SHIFT SUMMARY NO ACUTE EVENTS DURING THIS SHIFT. MEDICATED ORDERED WITH PERCOCET 5MG 2 TABS C/O 11/11 RLE PAIN AFTER WOUND VAC WAS REPLACED DURING PREVIOUS SHIFT. ABX INFUSED ORDERED. CALL LIGHT WITHIN REACH. BED AT THE LOWEST POSITION. PT CALLS APPROPRIATELY.
[2023-12-26 06:39] LABS: BASOPHILS ABSOLUTE AUTO 0.05 K/mm3 (0.00-0.23); BASOPHILS PERCENT AUTO 1 % (0-2); EOSINOPHILS ABSOLUTE AUTO 0.26 K/mm3 (0.00-0.68); EOSINOPHILS PERCENT AUTO 3 % (0-6); Hematocrit 31.3 % (33.0-51.0); Hemoglobin 10.4 g/dL (11.5-16.0); IMMATURE GRAN ABSOLUTE AUTO 0.06 K/mm3 (0.00-0.10); IMMATURE GRAN PERCENT AUTO 1 % (0-1); LYMPHOCYTES ABSOLUTE AUTO 2.62 K/mm3 (0.84-5.20); LYMPHOCYTES PERCENT AUTO 31 % (21-46); MONOCYTES ABSOLUTE AUTO 0.65 K/mm3 (0.16-1.47); MONOCYTES PERCENT AUTO 8 % (4-13); Mean Corpuscular HGB 30.4 pg (26.0-34.0); Mean Corpuscular HGB Conc 33.2 g/dL (31.5-36.5); Mean Corpuscular Volume 92 fL (80-100); Mean Platelet Volume 9.8 fL (9.1-12.4); NEUTROPHILS ABSOLUTE AUTO 4.72 K/mm3 (1.96-9.15); NEUTROPHILS PERCENT AUTO 57 % (41-73); Platelet Count 519 K/mm3 (150-400); RDW Coefficient Variation 13.1 % (11.7-14.2); RDW Standard Deviation 43.2 fL (35.1-46.3); Red Blood Cell Count 3.42 M/mm3 (3.80-5.20); White Blood Cell Count 8.36 K/mm3 (4.00-11.30)
[2023-12-26 07:03] LABS: Bun/Creatinine Ratio 28.4 (12.0-20.0); Calcium, Blood 8.8 mg/dL (8.5-10.1); Creatinine, Blood 0.6 mg/dL (0.40-1.00); Potassium, Blood 3.9 mmol/L (3.5-5.5)
[2023-12-26 07:41] VITALS: BP 117/61
[2023-12-26] MEDS ORDERED: Cefepime 2000 mg Vial ONE ×2 (07:55→19:58)
[2023-12-26] MEDS ORDERED: NS 100 ML IV ONE ×2 (07:55→19:58)
[2023-12-26 10:50] LABS: Vancomycin, Trough 18.3 ug/mL (5.0-10.0)
[2023-12-26 16:12] VITALS: BP 138/85
--- NOTE | 2023-12-26 16:42 | NUR ---
PT PLEASANT TODAY. SISTER AND A FRIEND IN TO VISIT TODAY. LEG PAIN MANAGED WITH AVAIL MEDS. STILL UP GETTING TO BATHROOM. WOUND VAC STILL IN PLACE AND FUNCTIONAL. NO NEW CONCERNS NOTED. BED INLOW POSITION, CALL LITE IN REACH, CALLS APPROP
[2023-12-26 19:36] VITALS: BP 147/92
[2023-12-27 03:20] VITALS: BP 144/84
--- NOTE | 2023-12-27 05:08 | NUR ---
SHIFT SUMMARY PATIENT WAS COOPERATIVE WITH CARE AND APPEARED TO SLEEP THROUGH THE NIGHT. VANCOMYCIN IV DEATH CLAIM CLERK PER DR ORDER. PATIENT REQUESTED PAIN MEDICATION AT 2221. PATIENT TOLERATED WELL. PATIENT ABLE TO MAKE NEEDS KNOWN, ASKED FOR TURKEY SANDWICH. BED RAILS TIMES 2, CALL LIGHT WITHIN REACH, BED IN LOW POSITION.
[2023-12-27 07:32] VITALS: BP 121/86
[2023-12-27 07:48] LABS: BASOPHILS ABSOLUTE AUTO 0.05 K/mm3 (0.00-0.23); BASOPHILS PERCENT AUTO 1 % (0-2); EOSINOPHILS ABSOLUTE AUTO 0.35 K/mm3 (0.00-0.68); EOSINOPHILS PERCENT AUTO 4 % (0-6); Hematocrit 31.5 % (33.0-51.0); Hemoglobin 10.2 g/dL (11.5-16.0); IMMATURE GRAN ABSOLUTE AUTO 0.06 K/mm3 (0.00-0.10); IMMATURE GRAN PERCENT AUTO 1 % (0-1); LYMPHOCYTES ABSOLUTE AUTO 2.69 K/mm3 (0.84-5.20); LYMPHOCYTES PERCENT AUTO 33 % (21-46); MONOCYTES ABSOLUTE AUTO 0.61 K/mm3 (0.16-1.47); MONOCYTES PERCENT AUTO 7 % (4-13); Mean Corpuscular HGB 29.7 pg (26.0-34.0); Mean Corpuscular HGB Conc 32.4 g/dL (31.5-36.5); Mean Corpuscular Volume 92 fL (80-100); Mean Platelet Volume 9.4 fL (9.1-12.4); NEUTROPHILS ABSOLUTE AUTO 4.51 K/mm3 (1.96-9.15); NEUTROPHILS PERCENT AUTO 55 % (41-73); Platelet Count 481 K/mm3 (150-400); RDW Coefficient Variation 13.2 % (11.7-14.2); Red Blood Cell Count 3.44 M/mm3 (3.80-5.20); White Blood Cell Count 8.27 K/mm3 (4.00-11.30)
[2023-12-27] MEDS ORDERED: NS 100 ML IV ONE ×3 (08:06→22:55)
[2023-12-27] MEDS ORDERED: Cefepime HCl 2,000 MG in NS 100 ML IV SCH (08:06)
[2023-12-27] MEDS ORDERED: Cefepime 2000 mg Vial ONE ×3 (08:06→22:55)
[2023-12-27 08:10] LABS: Bun/Creatinine Ratio 26.6 (12.0-20.0); Creatinine, Blood 0.6 mg/dL (0.40-1.00); Potassium, Blood 3.9 mmol/L (3.5-5.5)
[2023-12-27 15:41] VITALS: BP 155/81
--- NOTE | 2023-12-27 18:11 | NUR ---
SHIFT SUMMARY: PATIENT IS A&OX4/INDEPENDENT;MAKES HER NEEDS KNOWN. HER WOUND VAC DRESSING WAS CHANGED TODAY. THIS PROCEDURE IS VERY PAINFUL FOR THE PATIENT EVEN WITH PRE PRECEDURE FENTANYL GIVEN. SHE CONTINUES TO GET IV ANTIBIOTICS AND PAIN MEDICATION NEEDED AND HER SCHEDULED METHADONE. PER DR. NERI PATIENT IS TO BE NPO AT 0000 ON 12/29/23 AND TO HOLD LOVENOX THAT DAY PRIOR TO PROCEDURE. HE STATES THAT HE WILL PLACE ORDERS. PATIENT IN BED, CALL LIGHT WITHIN REACH, NO SIGNS OR SYPTOMS OF DISTRESS, PLAN OF CARE ONGOING.
[2023-12-27 20:26] VITALS: BP 134/91
[2023-12-28 04:24] VITALS: BP 139/78
[2023-12-28 05:55] LABS: Bun/Creatinine Ratio 33.7 (12.0-20.0); Calcium, Blood 9.3 mg/dL (8.5-10.1); Creatinine, Blood 0.53 mg/dL (0.40-1.00); Potassium, Blood 3.5 mmol/L (3.5-5.5)
[2023-12-28 07:32] VITALS: BP 135/89
[2023-12-28] MEDS ORDERED: NS 100 ML IV ONE ×3 (08:19→23:46)
[2023-12-28] MEDS ORDERED: Cefepime 2000 mg Vial ONE ×3 (08:19→23:46)
--- NOTE | 2023-12-28 08:53 | NUR ---
SHIFT SUMMARY: SAMEERA IS A&OX4. VSS, NO ACUTE EVENTS OVERNIGHT. THE WOUND VAC TO THE RIGHT LOWER EXTREMITY IS PATENT, DRESSING COMPRESSED. PT WAS FOUND TO HAVE THE CORD TO THE WOUND VAC DISCONNECTED FOR AN UNKNOWN LENGTH OF TIME. CORD RECONNECTED ANF PUMP RETURNED TO FUNCTIONING AT PROGRAMMED PARAMETERS WITHOUT ANY ALARMS. SHE IS TOLERATING PO INTAKE WELL AND IS INDEPENDENT TO THE BSC. SHE REPORTS ADEQUATE PAIN MANAGEMENT WITH MEDICATIONS PER MAR. SHE IS LYING IN BED WITH THE CALL LIGHT IN REACH. REPORT WAS GIVEN TO DAY SHIFT RN.
[2023-12-28 15:19] VITALS: BP 139/70
--- NOTE | 2023-12-28 16:28 | NUR ---
SHIFT SUMMARY POD 5 I&D R BAUTISTA WOUND VAC REMAINS PATENT AND FUNCTIONAL. HOLDING COMPRESSION. REDNESS NOTED AROUND SITE. UNCHANGED DURING SHIFT. PAIN WELL CONTROLLED PER EMAR. IV ABX PER EMAR. PT AMBULATING WELL IN ROOM. TOLERATING DIET WELL. PLAN IS FOR NPO AT MIDNIGHT FOR POSSIBLE PROCEDURE TOMORROW. PT AGREEABLE TO PLAN.
[2023-12-28 19:36] VITALS: BP 133/70
[2023-12-29] VITALS (12 sets, daily range): BP systolic 123–177; BP diastolic 65–142
--- NOTE | 2023-12-29 05:38 | NUR ---
SHIFT SUMMARY NOC PT A/O X 4. PLEASANT AND COOPERATIVE WITH CARE. VSS. NO ACUTE CHANGES TO REPORT. PT HAS BEEN NPO SINCE MIDNIGHT IN PREPARATION FOR I&D ON RLE. WOUND VAC IN PLACE DRAINING SCANT SEROSANGENOUS DRAINAGE. RLE PAIN BEING MANAGED PER EMAR. POWERGLIDE BERNICE THAT DOES NOT DRAW. ON CONTACT ISOLATION FOR MRSA IN WOUND. PT CURRENTLY RESTING WITH BED IN LOWEST POSITION, AND CALL LIGHT WITHIN REACH.
[2023-12-29] MEDS ORDERED: Cefepime 2000 mg Vial ONE (07:43)
[2023-12-29] MEDS ORDERED: NS 100 ML IV ONE (07:44)
[2023-12-29 10:10] LABS: BASOPHILS ABSOLUTE AUTO 0.06 K/mm3 (0.00-0.23); BASOPHILS PERCENT AUTO 1 % (0-2); EOSINOPHILS ABSOLUTE AUTO 0.33 K/mm3 (0.00-0.68); EOSINOPHILS PERCENT AUTO 4 % (0-6); Hematocrit 33.2 % (33.0-51.0); Hemoglobin 10.8 g/dL (11.5-16.0); IMMATURE GRAN ABSOLUTE AUTO 0.05 K/mm3 (0.00-0.10); IMMATURE GRAN PERCENT AUTO 1 % (0-1); LYMPHOCYTES ABSOLUTE AUTO 2.72 K/mm3 (0.84-5.20); LYMPHOCYTES PERCENT AUTO 29 % (21-46); MONOCYTES ABSOLUTE AUTO 0.68 K/mm3 (0.16-1.47); MONOCYTES PERCENT AUTO 7 % (4-13); Mean Corpuscular HGB 29.8 pg (26.0-34.0); Mean Corpuscular HGB Conc 32.5 g/dL (31.5-36.5); Mean Corpuscular Volume 92 fL (80-100); Mean Platelet Volume 9.7 fL (9.1-12.4); NEUTROPHILS ABSOLUTE AUTO 5.57 K/mm3 (1.96-9.15); NEUTROPHILS PERCENT AUTO 59 % (41-73); Platelet Count 477 K/mm3 (150-400); RDW Coefficient Variation 13.4 % (11.7-14.2); RDW Standard Deviation 44.6 fL (35.1-46.3); Red Blood Cell Count 3.62 M/mm3 (3.80-5.20); White Blood Cell Count 9.41 K/mm3 (4.00-11.30)
[2023-12-29 10:28] LABS: Anion Gap 8 mmol/L (3-11); Blood Urea Nitrogen 14 mg/dL (8-24); CO2, Blood 28 mmol/L (21-32); Calcium, Blood 9.1 mg/dL (8.5-10.1); Chloride, Blood 105 mmol/L (98-108); Creatinine, Blood 0.48 mg/dL (0.40-1.00); Glomerular Filtration Rate 120 (60-); Glucose, Blood 101 mg/dL (70-99); Potassium, Blood 3.7 mmol/L (3.5-5.5); Sodium, Blood 137 mmol/L (136-145)
[2023-12-29] MEDS ORDERED: Vancomycin HCL 1,250 MG in NS 250 ML IV SCH (11:30)
[2023-12-29] MEDS ORDERED: Lactated Ringer's 1,000 ML IV SCH (13:30)
--- NOTE | 2023-12-29 14:03 | NUR ---
PT HERE FROM [facility] FOR I+D OF RIGHT LEG WOUND. Patient confirms NPO status and agrees with scheduled surgery. Pre-Op teaching done. Pt verbalizes understanding. History, Chart, Medications and Allergies reviewed before start of procedure.
[2023-12-29] MEDS ORDERED: propofoL 20 ML IV ONE (14:41)
[2023-12-29] MEDS ORDERED: Midazolam HCl 1MG / ML 2ML Vial ONE (14:41)
[2023-12-29] MEDS ORDERED: FentaNYL Citrate 50 MCG/ML 2 ML Injection ONE ×2 (14:41→16:19)
[2023-12-29] MEDS ORDERED: Dexamethasone Sod Phos 10 MG/ML 1ML VIAL ONE (15:14)
[2023-12-29] MEDS ORDERED: Ondansetron HCl 2 MG / ML 2ML Vial ONE (15:14)
[2023-12-29] MEDS ORDERED: HYDROmorphone HCl/Pf 1MG SYR ONE ×2 (15:15→16:19)
[2023-12-29] MEDS ORDERED: Bupivacaine 0.5% HCl 5 MG/ML 30MLVIAL ONE (15:45)
[2023-12-29] MEDS ORDERED: Lidocaine 2%-Epineph 1:200000 20 ML SDV ONE (15:45)
--- NOTE | 2023-12-29 18:01 | NUR ---
SHIFT SUMMARY: PT A/O X4. PLEASANT AND COOPERATIVE WITH CARE. INDEPENDENT IN ROOM. PT NPO THIS AM FOR REPEAT I&D COMPLETED BY DR. BARKSDALE. SPOKE WITH ORNAMENTAL IRON WORKER APPRENTICE STATING PT WILL NEED WOUND VAC IN ORDER TO GO HOME PT IS UNABLE TO TAKE HOSPITAL WOUND VAC EQUIPMENT. PT MEDICATED FOR PAIN IN POST-OP BUT HAS NOT C/O PAIN SINCE ARRIVAL. CALL LIGHT IN REACH. BED IN LOWEST POSITION.
[2023-12-30 03:49] VITALS: BP 136/80
--- NOTE | 2023-12-30 05:58 | NUR ---
SHIFT SUMMARY: Pt is admitted for cellulitis of the right leg and is a full code. Is alert and able to make needs known. Pain was managed with PRN pain management. Powerglide to left upper extremity is patent with dressing that is CDI.
[2023-12-30 06:16] LABS: BASOPHILS PERCENT AUTO 1 % (0-2); EOSINOPHILS PERCENT AUTO 1 % (0-6); Hematocrit 32.9 % (33.0-51.0); Hemoglobin 10.4 g/dL (11.5-16.0); IMMATURE GRAN ABSOLUTE AUTO 0.12 K/mm3 (0.00-0.10); IMMATURE GRAN PERCENT AUTO 1 % (0-1); LYMPHOCYTES ABSOLUTE AUTO 3.23 K/mm3 (0.84-5.20); LYMPHOCYTES PERCENT AUTO 25 % (21-46); MONOCYTES ABSOLUTE AUTO 0.76 K/mm3 (0.16-1.47); MONOCYTES PERCENT AUTO 6 % (4-13); Mean Corpuscular HGB 29.5 pg (26.0-34.0); Mean Corpuscular HGB Conc 31.6 g/dL (31.5-36.5); Mean Corpuscular Volume 94 fL (80-100); Mean Platelet Volume 9.8 fL (9.1-12.4); NEUTROPHILS ABSOLUTE AUTO 8.63 K/mm3 (1.96-9.15); NEUTROPHILS PERCENT AUTO 67 % (41-73); Platelet Count 445 K/mm3 (150-400); RDW Coefficient Variation 13.4 % (11.7-14.2); RDW Standard Deviation 45.6 fL (35.1-46.3); Red Blood Cell Count 3.52 M/mm3 (3.80-5.20); White Blood Cell Count 12.94 K/mm3 (4.00-11.30)
[2023-12-30 06:39] LABS: Bun/Creatinine Ratio 25.8 (12.0-20.0); Calcium, Blood 9.2 mg/dL (8.5-10.1); Creatinine, Blood 0.58 mg/dL (0.40-1.00)
[2023-12-30 07:53] VITALS: BP 128/77
[2023-12-30 15:03] VITALS: BP 134/80
--- NOTE | 2023-12-30 18:10 | NUR ---
SHIFT SUMMARY: PT A/O X4. PLEASANT AND COOPERATIVE WITH CARE. PT STATED 5/10 PAIN IN RLE THIS SHIFT. NO ACUTE CHANGES. CARE MANAGEMENT WORKING TO OBTAIN WOUND VAC PT CAN TAKE HOME. CM SPOKE WITH DR. BARKSDALE WHO STATED THAT HE WANTED TO BE THE ONE TO COMPLETE ALL WOUND VAC CHANGES. DR. BARKSDALE CELL NUMBER IN FRONT OF CHART AND WANTS TO BE NOTIFIED WHEN INSURANCE IS APPROVED FOR WOUND VAC. CALL LIGHT IN REACH. BED IN LOWEST POSITION.
[2023-12-30 20:18] VITALS: BP 135/81
[2023-12-30 22:51] LABS: Vancomycin, Trough 14.7 ug/mL (5.0-10.0)
[2023-12-31 02:41] VITALS: BP 142/79
--- NOTE | 2023-12-31 03:55 | NUR ---
SHIFT SUMMARY PT C/O 5-10/12 PAIN, PERCOCET 5MG PRN PO ADMINISTERED ORDERED AT HS. PT REPORTS EFFECTIVE. PT REPORTS THAT NOT SLEEPING WELL DURING THE NIGHT HRS, DID NOT REQUEST PRN MEDICATION. IV ABX'S INFUSED ORDERED. NO ACUTE EVENTS DURING THIS SHIFT. BED AT THE LOWEST POSITION, CALL LIGHT WITHIN REACH. PT IS ABLE TO MAKE HER NEEDS KNOWN.
[2023-12-31 06:39] LABS: Bun/Creatinine Ratio 28.8 (12.0-20.0); Calcium, Blood 9.2 mg/dL (8.5-10.1); Creatinine, Blood 0.56 mg/dL (0.40-1.00); Potassium, Blood 3.6 mmol/L (3.5-5.5)
[2023-12-31 06:57] LABS: BASOPHILS ABSOLUTE AUTO 0.08 K/mm3 (0.00-0.23); BASOPHILS PERCENT AUTO 1 % (0-2); EOSINOPHILS ABSOLUTE AUTO 0.33 K/mm3 (0.00-0.68); EOSINOPHILS PERCENT AUTO 4 % (0-6); Hematocrit 31.3 % (33.0-51.0); Hemoglobin 9.8 g/dL (11.5-16.0); IMMATURE GRAN ABSOLUTE AUTO 0.05 K/mm3 (0.00-0.10); IMMATURE GRAN PERCENT AUTO 1 % (0-1); LYMPHOCYTES ABSOLUTE AUTO 4.07 K/mm3 (0.84-5.20); LYMPHOCYTES PERCENT AUTO 44 % (21-46); MONOCYTES PERCENT AUTO 8 % (4-13); Mean Corpuscular HGB 29.5 pg (26.0-34.0); Mean Corpuscular HGB Conc 31.3 g/dL (31.5-36.5); Mean Corpuscular Volume 94 fL (80-100); NEUTROPHILS ABSOLUTE AUTO 3.96 K/mm3 (1.96-9.15); NEUTROPHILS PERCENT AUTO 43 % (41-73); Platelet Count 446 K/mm3 (150-400); RDW Coefficient Variation 13.9 % (11.7-14.2); RDW Standard Deviation 46.9 fL (35.1-46.3); Red Blood Cell Count 3.32 M/mm3 (3.80-5.20); White Blood Cell Count 9.19 K/mm3 (4.00-11.30)
[2023-12-31 08:23] VITALS: BP 130/72
[2023-12-31 15:18] VITALS: BP 169/95
--- NOTE | 2023-12-31 19:15 | NUR ---
SHIFT SUMMARY PATIENT A/OX4 THIS SHIFT, ABLE TO MAKE NEEDS KNOWN. THIS AM ASSISTED PATIENT OUTSIDE FOR FRESH AIR, PATIENT COMPLAINING OF ANXIETY, STRESS, AND FRUSTRATION R/T STAYING IN HOSPITAL FOR LONGER THAN EXPECTED. WOUND VAC TO RLE INTACT, FUNCTIONING PROPERLY WITH NO CONCERNS. BP ELEVATED THIS AFTERNOON. POWERGLIDE TO LUE, DOES NOT DRAW. REMAINS ON CONTACT PRECAUTIONS. PATIENT PLEASANT AND COOPERATIVE WITH STAFF. PATIENT'S SON AND FRIENDS CAME TO VISIT THIS AFTERNOON. PATIETN STATES HAD BOWEL MOVEMENT 12/30/23. NO OTHER CONCERNS.
[2023-12-31 19:28] VITALS: BP 139/101
[2023-12-31 20:01] VITALS: BP 126/72
[2024-01-01 02:28] VITALS: BP 110/79
--- NOTE | 2024-01-01 05:49 | NUR ---
SHIFT SUMMARY NO ACUTE EVENTS DURING THIS SHIFT. PT RESTING IN BED, RR EVEN, UNLABORED. NO C/O PAIN OR DISCOMFORT. PT SLIGHLY DISAPPOINTED D/T LATE D/C FROM THE HOSPITAL, WHICH IS PLANNED FOR FRIDAY. BED AT THE LOWEST POSITION, CALL LIGHT WITHIN REACH. PT ABLE TO MAKE HER NEEDS KNOWN.
[2024-01-01] MEDS ORDERED: Enoxaparin 40 MG/0.4 ML SYR SC SCH (07:00)
[2024-01-01 07:19] LABS: BASOPHILS ABSOLUTE AUTO 0.08 K/mm3 (0.00-0.23); BASOPHILS PERCENT AUTO 1 % (0-2); EOSINOPHILS ABSOLUTE AUTO 0.27 K/mm3 (0.00-0.68); EOSINOPHILS PERCENT AUTO 3 % (0-6); Hematocrit 32.5 % (33.0-51.0); Hemoglobin 10.5 g/dL (11.5-16.0); IMMATURE GRAN ABSOLUTE AUTO 0.06 K/mm3 (0.00-0.10); IMMATURE GRAN PERCENT AUTO 1 % (0-1); LYMPHOCYTES ABSOLUTE AUTO 3.38 K/mm3 (0.84-5.20); LYMPHOCYTES PERCENT AUTO 41 % (21-46); MONOCYTES ABSOLUTE AUTO 0.65 K/mm3 (0.16-1.47); MONOCYTES PERCENT AUTO 8 % (4-13); Mean Corpuscular HGB 30.5 pg (26.0-34.0); Mean Corpuscular HGB Conc 32.3 g/dL (31.5-36.5); Mean Corpuscular Volume 95 fL (80-100); NEUTROPHILS ABSOLUTE AUTO 3.72 K/mm3 (1.96-9.15); NEUTROPHILS PERCENT AUTO 46 % (41-73); Platelet Count 409 K/mm3 (150-400); RDW Coefficient Variation 13.9 % (11.7-14.2); Red Blood Cell Count 3.44 M/mm3 (3.80-5.20); White Blood Cell Count 8.16 K/mm3 (4.00-11.30)
[2024-01-01 07:32] VITALS: BP 125/66
[2024-01-01 07:35] LABS: Bun/Creatinine Ratio 28.9 (12.0-20.0); Calcium, Blood 9.6 mg/dL (8.5-10.1); Creatinine, Blood 0.59 mg/dL (0.40-1.00); Potassium, Blood 3.6 mmol/L (3.5-5.5)
[2024-01-01] MEDS ORDERED: LOSA25 PO (16:10)
[2024-01-01] MEDS ORDERED: VISBIOME 112.51 EACH PO (16:11)
[2024-01-01] MEDS ORDERED: CIPR750 PO (16:11)
--- NOTE | 2024-01-01 17:08 | NUR ---
DISCHARGE NOTE PATIENT A/OX4, ABLE TO MAKE NEEDS KNOWN. DENIES PAIN TODAY. AMBULATORY IN ROOM INDEPENDENTLY. WOUND VAC CHANGED BY DR. BARKSDALE TODAY PRIOR TO DISCHARGE. PATIENT PROVIDED EDUCATION REGARDING DISCHARGE PLAN, PATIENT EAGER AND EXCITED FOR DISCHARGE. POWERGLIDE REMOVED. DISCHARGE DOCUMENTATION COMPLETED. PATIENT ASSISTED TO [facility] BY [facility] STAFF WITH ALL BELONGINGS. NO OTHER CONCERNS.
== END 2024-01-01 18:18 | disposition home or self-care (01) | DRG 574 ==
LOC: ER 01:07 → MEDS 01:08 → ERHOLD 01:08 → MEDS 09:00
PROVIDERS: Family Medicine; Orthopaedic Surgery Sports Medicine; Student in an Organized Health Care Education/Training Program; ADMIT Family Medicine
PROC: 0LBN0ZZ Excision of Right Lower Leg Tendon, Open Approach (ICD-10-PCS; principal; 2023-12-23 15:30)
PROC: 0JDN0ZZ Extraction of Right Lower Leg Subcutaneous Tissue and Fascia, Open Approach (ICD-10-PCS; 2023-12-29)
PROC: 0HRKXK3 Replacement of Right Lower Leg Skin with Nonautologous Tissue Substitute, Full Thickness, External Approach (ICD-10-PCS; 2023-12-29)
DX: L03.115 Cellulitis of right lower limb (principal); L97.919 Non-pressure chronic ulcer of unspecified part of right lower leg with unspecified severity; S81.801A Unspecified open wound, right lower leg, initial encounter; B19.20 Unspecified viral hepatitis C without hepatic coma; F17.210 Nicotine dependence, cigarettes, uncomplicated; F15.10 Other stimulant abuse, uncomplicated; F11.10 Opioid abuse, uncomplicated; D75.838 Other thrombocytosis; I15.9 Secondary hypertension, unspecified; G70.00 Myasthenia gravis without (acute) exacerbation; D63.8 Anemia in other chronic diseases classified elsewhere; Z98.890 Other specified postprocedural states; Z98.51 Tubal ligation status; Z86.14 Personal history of Methicillin resistant Staphylococcus aureus infection; Z79.899 Other long term (current) drug therapy
CPT/HCPCS: 36415; 73590; 73701; 80048; 80053; 80202; 83605; 85025; 87040; 87070; 87075; 87077; 87186; 87205; 93005; 93010; 93925; 96365; 96366; 96367; 96372; 96375; 96376; 97110; 97162; 97165; 97530; 97535; 99285-25; A9270; C1751; G0378; J0692; J1100; J1170; J1650; J1885; J2250; J2405; J2704; J3010; J3370; J7040; J7050; J7120; Q4105; Q9967

== ENCOUNTER 2024-01-28 11:05 | Day surgery (SDC) | payer OTHER ==
[~2024-01-28] VITALS: Ht 170.2 cm; Wt 122.1 kg
[2024-01-28] VITALS (9 sets, daily range): BP systolic 119–142; BP diastolic 70–82
[~2024-01-28 11:05] MED LIST changes: +CIPR750 PO; +CeFAZolin Sodium 2,000 MG in NS 100 ML IV SCH; +IBUP200 PO; +LOSA25 PO; +Lactated Ringer's 1,000 ML IV SCH; +METHADONE HCL PO; +NAPR500ERA PO
[2024-01-28] MEDS ORDERED: CeFAZolin Sodium 3,000 MG in NS 100 ML IV SCH (12:15)
[2024-01-28] MEDS ORDERED: METH10 PO (12:27)
[2024-01-28] MEDS ORDERED: Glycerin Adult Supp 1 EA PR ONE (13:30)
[2024-01-28] MEDS ORDERED: Lidocaine 2%-Epineph 1:100000 20 ML MDV XX ONE ×2 (14:20→15:17)
[2024-01-28] MEDS ORDERED: Triple Antibiotic Ointment 30 gm ONE (14:21)
[2024-01-28] MEDS ORDERED: Midazolam HCl 1MG / ML 2ML Vial ONE (14:30)
[2024-01-28] MEDS ORDERED: propofoL 20 ML IV ONE (14:30)
[2024-01-28] MEDS ORDERED: FentaNYL Citrate 50 MCG/ML 2 ML Injection ONE (14:30)
[2024-01-28] MEDS ORDERED: Dexamethasone Sod Phos 10 MG/ML 1ML VIAL ONE (14:36)
[2024-01-28] MEDS ORDERED: Ondansetron HCl 2 MG / ML 2ML Vial ONE (14:36)
[2024-01-28] MEDS ORDERED: HYDROmorphone HCl/Pf 1MG SYR ONE (14:45)
--- NOTE | 2024-01-28 17:30 | NUR ---
Patient up to Ambulate independently. Gait steady. Discharge instructions reviewed with patient. Patient verbalizes understanding. Copy given to patient to take home. Dressing to procedure site clean, dry, intact with no visible drainage, swelling, erythema or bruising noted. Patient States Post-Procedure ride home has been arranged. Discharged via wheelchair to private car for ride home. PT HAS WOUND VAC IN PLACE DR BARKSDALE AT BEDSIDE TALKING TO PT, PT INSTRUCTED TO F/U FRIDAY CALL OFFICE TOMORROW FOR TIME OF F/U
== END 2024-01-28 23:03 | disposition home or self-care (01) ==
LOC: ORSCMMR 11:05 → ORD 13:30 → ORSCMMR 13:30
PROVIDERS: Orthopaedic Surgery Sports Medicine
PROC: 0HRKX74 Replacement of Right Lower Leg Skin with Autologous Tissue Substitute, Partial Thickness, External Approach (ICD-10-PCS; principal; 2024-01-28 14:00)
DX: S81.801D Unspecified open wound, right lower leg, subsequent encounter (principal); I10 Essential (primary) hypertension; E11.9 Type 2 diabetes mellitus without complications; E66.01 Morbid (severe) obesity due to excess calories; Z68.41 Body mass index [BMI] 40.0-44.9, adult; Z79.899 Other long term (current) drug therapy
CPT/HCPCS: A9270; J0690; J1100; J1170; J2250; J2405; J2704; J3010; J7120

== ENCOUNTER → 2024-03-08 | Outpatient (CLI) | payer OTHER ==
[~2024-03-08] MED LIST changes: -CeFAZolin Sodium 2,000 MG in NS 100 ML IV SCH; -Lactated Ringer's 1,000 ML IV SCH
== END | disposition home or self-care (01) ==
LOC: LAB SHORT 11:05 → LAB 11:05
DX: S81.801D Unspecified open wound, right lower leg, subsequent encounter (principal); Z98.890 Other specified postprocedural states
CPT/HCPCS: 87070; 87075; 87077; 87186; 87205

== ENCOUNTER 2024-03-11 10:49 | Day surgery (SDC) | payer OTHER ==
[~2024-03-11] VITALS: Ht 170.2 cm; Wt 123.7 kg
[2024-03-11] VITALS (10 sets, daily range): BP systolic 116–150; BP diastolic 69–92
[2024-03-11] MEDS ORDERED: Lactated Ringer's 1,000 ML IV SCH (11:05)
[2024-03-11] MEDS ORDERED: Tranexamic Acid 100 ML IV SCH (11:05)
[2024-03-11] MEDS ORDERED: CeFAZolin Sodium 3,000 MG in NS 100 ML IV SCH (11:35)
--- NOTE | 2024-03-11 11:40 | NUR ---
Ambulatory in Day Surgery. History, Chart, Medications and Allergies reviewed before start of procedure.Lungs clear T/O to Auscultation. Patient confirms NPO status and agrees with scheduled surgery. Pre-Op teaching done. Pt verbalizes understanding. Patient States Post-Procedure ride home has been arranged WITH [facility].
[2024-03-11] MEDS ORDERED: Sugammadex Sodium 200 MG/2ML SDV (100 MG/ML) ONE (12:08)
[2024-03-11] MEDS ORDERED: Rocuronium Bromide 10 MG/ML 5ML Injection IV ONE (13:33)
[2024-03-11] MEDS ORDERED: Ondansetron HCl 2 MG / ML 2ML Vial ONE (13:33)
[2024-03-11] MEDS ORDERED: Ketorolac Tromethamine 30mg Vial ONE ×2 (13:33→15:36)
[2024-03-11] MEDS ORDERED: FentaNYL Citrate 50 MCG/ML 5 ML Injection ONE (13:33)
[2024-03-11] MEDS ORDERED: propofoL 20 ML IV ONE (13:33)
--- NOTE | 2024-03-11 14:00 | NUR ---
PT RESTING QUIETLY. BEEN ASSISTED WITH ADL'S PRN.
--- NOTE | 2024-03-11 14:44 | NUR ---
PT VOIDED. ASSISTED WITH ADL'S PRN. DENIES OTHER NEED.
[2024-03-11] MEDS ORDERED: Vancomycin HCl 1000 MG ADDvantage ONE ×2 (14:59→15:16)
[2024-03-11] MEDS ORDERED: OxyCODONE HCL 5 MG TAB PO PRN (15:35)
[2024-03-11] MEDS ORDERED: FentaNYL Citrate 50 MCG/ML 2 ML Injection ONE (15:44)
--- NOTE | 2024-03-11 16:41 | NUR ---
REVIEWED DISCHARGE INSTRUCTIONS WITH PT. DR. BARKSDALE AT BEDSIDE-MD INSTRUCTED PT TO MAKE AN ADDITIONAL APPOINTMENT FOR FRIDAY OR FRIDAY NEXT WEEK. PT HAS FOUR BROKEN & LOOSE TEETH. ONE SLIVER CAME OFF DURING INTUBATION. ANESTHESIA RECOVED THE PIECE OF TOOTH. PT REQUESTS THAT IT BE THROWN AWAY. REQUEST GRANTED. DR. BARKSDALE EMPHASIZED THE IMPORTANCE OF SEEING A DENTIST TO GET THE REMAINING TEETH PULLED AND THE "INFECTION UNDER CONTROL." PT VERBALIZES UNDERSTANDING. PT DISCHARGED TO HOME-OUT VIA WHEELCHAIR WITH DISCHARGE INSTRUCTIONS AND BELONGINGS ON HAND.
== END 2024-03-11 16:41 | disposition home or self-care (01) ==
LOC: ORSCMMR 10:49 → ORD 13:00 → ORSCMMR 13:00
PROVIDERS: Orthopaedic Surgery Sports Medicine
PROC: 0JDN0ZZ Extraction of Right Lower Leg Subcutaneous Tissue and Fascia, Open Approach (ICD-10-PCS; principal; 2024-03-11 14:00)
DX: S81.801D Unspecified open wound, right lower leg, subsequent encounter (principal); A49.01 Methicillin susceptible Staphylococcus aureus infection, unspecified site; Z98.890 Other specified postprocedural states; I10 Essential (primary) hypertension; E11.9 Type 2 diabetes mellitus without complications; E66.9 Obesity, unspecified; Z68.41 Body mass index [BMI] 40.0-44.9, adult; Z79.899 Other long term (current) drug therapy
CPT/HCPCS: 87070; 87075; 87077; 87186; 87205; A9270; C1751; J0690; J1885; J2405; J2704; J3010; J3370; J7120

== ENCOUNTER → 2024-04-19 | Outpatient (CLI) | payer OTHER | LOC: LAB SHORT 15:38 → LAB 15:38 | DX: S81.801D Unspecified open wound, right lower leg, subsequent encounter (principal) | CPT/HCPCS: 87070; 87075; 87077; 87186; 87205 ==

== ENCOUNTER 2024-04-21 11:04 | Day surgery (SDC) | payer OTHER ==
[~2024-04-21] VITALS: Ht 170.2 cm; Wt 125.9 kg
[2024-04-21] VITALS (11 sets, daily range): BP systolic 97–118; BP diastolic 59–89
[~2024-04-21 11:04] MED LIST changes: +Lactated Ringer's 1,000 ML IV SCH; +Tranexamic Acid 1,000 MG in NS 100 ML IV SCH
[2024-04-21] MEDS ORDERED: CeFAZolin Sodium 3,000 MG in NS 100 ML IV SCH (12:25)
--- NOTE | 2024-04-21 12:45 | NUR ---
Patient up to Ambulate independently. Gait steady. History, Chart, Medications and Allergies reviewed before start of procedure. Pre-Op teaching done. Pt verbalizes understanding. Patient States Post-Procedure ride home has been arranged.
[2024-04-21] MEDS ORDERED: Ketamine HCl 100 MG / ML 5ML Vial ONE (13:15)
[2024-04-21] MEDS ORDERED: Ketorolac Tromethamine 30mg Vial ONE (13:15)
[2024-04-21] MEDS ORDERED: Ondansetron HCl 2 MG / ML 2ML Vial ONE (13:15)
[2024-04-21] MEDS ORDERED: Glycopyrrolate 0.2 MG/ML 5ML VIAL ONE (13:15)
[2024-04-21] MEDS ORDERED: Dexamethasone Sod Phos 10 MG/ML 1ML VIAL ONE (13:15)
[2024-04-21] MEDS ORDERED: DiphenhydrAMINE HCl 50 MG/ML 1ML Vial ONE (13:15)
[2024-04-21] MEDS ORDERED: propofoL 40 ML IV ONE (13:17)
[2024-04-21] MEDS ORDERED: HYDROmorphone HCl/Pf 1MG SYR ONE (13:56)
[2024-04-21] MEDS ORDERED: propofoL 50 ML IV ONE (13:58)
--- NOTE | 2024-04-21 14:34 | NUR ---
04/21/24 1434 Niko,Johanny ALL FIVE REMAINING TEETH ON THE PATIENT'S LOWER MANDIBLE ARE LOOSE AND POSE A THREAT TO PATIENT SAFETY BY WAY OF AIRWAY SAFETY, PER DR. GIRON.
[2024-04-21] MEDS ORDERED: Cefepime HCl 2,000 MG in NS 100 ML IV ONE (15:05)
[2024-04-21] MEDS ORDERED: OxyCODONE HCL 5 MG TAB PO ONE (15:30)
--- NOTE | 2024-04-21 15:36 | NUR ---
REPORT RECEIVED FROM KEN RIGGINS. VSS. PT ON RA. PT ABLE TO REPOSITION SELF IN BED. PT REQUESTING PO FOOD AND FLUIDS AND TOLERATING THEM WELL. PT HAS NIGHAT WRAP TO RLE THAT IS C/D/I. PT ALSO HAS WOUND VAC TO RLE. PT DENIES PAIN, NAUSEA OR OTHER DISCOMFORTS.
--- NOTE | 2024-04-21 15:53 | NUR ---
Patient up to Ambulate independently. Gait steady. VSS AND CONSISTENT WITH PT BASELINE. PT HAS NO COMPLAINTS AND VERBALIZES READINESS TO GO HOME. Discharge instructions reviewed with patient. Patient verbalizes understanding. Copy given to patient to take home. Dressing to procedure site clean, dry, intact with no visible drainage, swelling, erythema or bruising noted. Patient States Post-Procedure ride home has been arranged. Discharged via wheelchair to private car for ride home. PT BELONGINGS RETURNED TO PT.
== END 2024-04-21 15:53 | disposition home or self-care (01) ==
LOC: ORD 11:04 → ORSCMMR 11:04 → ORD 15:53
PROVIDERS: Orthopaedic Surgery Sports Medicine
PROC: 2W1LX6Z Compression of Right Lower Extremity using Pressure Dressing (ICD-10-PCS; principal; 2024-04-21 13:00)
PROC: 0JBN0ZZ Excision of Right Lower Leg Subcutaneous Tissue and Fascia, Open Approach (ICD-10-PCS; principal; 2024-04-21 13:00)
DX: L03.115 Cellulitis of right lower limb (principal); I10 Essential (primary) hypertension; F17.210 Nicotine dependence, cigarettes, uncomplicated; B19.20 Unspecified viral hepatitis C without hepatic coma; E11.9 Type 2 diabetes mellitus without complications; F15.10 Other stimulant abuse, uncomplicated; E66.9 Obesity, unspecified; Z68.42 Body mass index [BMI] 45.0-49.9, adult; Z79.899 Other long term (current) drug therapy
CPT/HCPCS: J0690; J0692; J1100; J1171; J1200; J1885; J2405; J2704; J7120

== ENCOUNTER 2024-05-19 11:30 | Day surgery (SDC) | payer OTHER ==
[~2024-05-19] VITALS: Ht 170.2 cm; Wt 126.4 kg
[2024-05-19] VITALS (12 sets, daily range): BP systolic 103–157; BP diastolic 65–107
[~2024-05-19 11:30] MED LIST changes: +ASPI81CH PO; -Lactated Ringer's 1,000 ML IV SCH; -Tranexamic Acid 1,000 MG in NS 100 ML IV SCH
[2024-05-19] MEDS ORDERED: CeFAZolin Sodium 3,000 MG in NS 100 ML IV SCH (11:45)
[2024-05-19] MEDS ORDERED: Tranexamic Acid 100 ML IV SCH (11:45)
[2024-05-19] MEDS ORDERED: Lactated Ringer's 1,000 ML IV SCH (11:45)
[2024-05-19] MEDS ORDERED: CeFAZolin Sodium 3,000 MG VIAL ONE (12:01)
--- NOTE | 2024-05-19 12:20 | NUR ---
History, Chart, Medications and Allergies reviewed before start of procedure. Pre-Op teaching done. Pt verbalizes understanding. Patient confirms NPO status and agrees with scheduled surgery. PT BELONGINGS PLACED UNDER GURNEY. PT REQUESTS TO LEAVE UNDERWEAR ON.
[2024-05-19] MEDS ORDERED: propofoL 20 ML IV ONE (13:55)
[2024-05-19] MEDS ORDERED: Bupivacaine 0.5% HCl 5 MG/ML 30MLVIAL ONE (14:12)
[2024-05-19] MEDS ORDERED: FentaNYL Citrate 50 MCG/ML 2 ML Injection ONE ×2 (14:34→14:46)
[2024-05-19] MEDS ORDERED: HydrALAZINE HCl 20 MG / ML 1ML Vial IV PRN (14:35)
[2024-05-19] MEDS ORDERED: Atropine Sulfate 0.1 MG/ML 10ML SYR IV PRN (14:35)
[2024-05-19] MEDS ORDERED: HYDROmorphone HCl/Pf 1MG SYR IV PRN ×2 (14:35→14:40)
[2024-05-19] MEDS ORDERED: Albuterol 2.5 MG/3 ML VIAL INH PRN (14:35)
[2024-05-19] MEDS ORDERED: Ondansetron HCl 2 MG / ML 2ML Vial IV PRN (14:35)
[2024-05-19] MEDS ORDERED: FentaNYL Citrate 50 MCG/ML 2 ML Injection IV PRN ×2 (14:35)
[2024-05-19] MEDS ORDERED: Ondansetron HCl 2 MG / ML 2ML Vial ONE (14:36)
[2024-05-19] MEDS ORDERED: Labetalol HCL 5 MG/ML 4ML Injection (Single Dose) IV PRN (14:40)
[2024-05-19] MEDS ORDERED: LORazepam 2 MG/ML 1ML Injection IV PRN (14:40)
--- NOTE | 2024-05-19 14:55 | NUR ---
05/19/24 1455 Chelo Khanna TWO RAYTEC WITH XYLOCAINE WITH EPI 1:100K OVER GRAFT DONOR SITE
[2024-05-19] MEDS ORDERED: HYDROmorphone HCl/Pf 1MG SYR ONE (15:19)
[2024-05-19] MEDS ORDERED: OxyCODONE HCL 5 MG TAB PO PRN (15:40)
--- NOTE | 2024-05-19 15:44 | NUR ---
PT HAD 2 TEETH EXTRACTED IN THE OR BY DR BARKSDALE AND PLACED IN A CUP BEHIND PT PILLOW. DR BARKSDALE SPOKE WITH PT IN PACU REGARDING THIS, AND PT STATED SHE WAS FINE WITH THIS. PT TRANSFERED TO STEP DOWN WITH SEALED CUP CONTAINING TO TEETH REMAINING BEHIND PILLOW. REPORT TO AS[facility]ION RIGGINS DAY SURGERY. ANESTHESIA CONFIRMED REMAINING TEETH WERE STILL IN PLACE AFTER EXTUBATION.
--- NOTE | 2024-05-19 16:49 | NUR ---
Discharge instructions reviewed with patient. Patient verbalizes understanding. Copy given to patient to take home. Discharged via wheelchair to private car for ride home. Wound vac running, power cord returned to patient along with belongings.
--- NOTE | 2024-05-19 16:50 | NUR ---
Dressing to procedure site clean, dry, intact with no change in drainage as previously documented in PACU. No swelling, erythema or bruising noted.
--- NOTE | 2024-05-20 17:03 | NUR ---
DELAYED ENTRY TWO TEETH IN SPECIMEN CUP DISPOSED OF PER PT'S REQUEST, STS SHE DOES NOT WANT TO TAKE THEM HOME.
== END 2024-05-19 16:40 | disposition home or self-care (01) ==
LOC: ORSCMMR 11:30 → ORD 12:30 → ORSCMMR 16:40
DX: S81.801D Unspecified open wound, right lower leg, subsequent encounter (principal); I10 Essential (primary) hypertension; F17.210 Nicotine dependence, cigarettes, uncomplicated; E11.9 Type 2 diabetes mellitus without complications; B19.20 Unspecified viral hepatitis C without hepatic coma; G70.00 Myasthenia gravis without (acute) exacerbation; Z79.899 Other long term (current) drug therapy
CPT/HCPCS: 82947; A9270; J0690; J1171; J2405; J2704; J3010; J7120